=== PATIENT | male | born 1955 | race Caucasian/White ===

== ENCOUNTER → 2017-01-23 | Day surgery (SDC) | payer OTHER ==
[~2017-01-23] MED LIST: BUPIVACAINE LIPOSOME PF 1.3% 20 ML VIAL ONE; MIDAZOLAM HCL 2 MG/2 ML VIAL ONE; ONDANSETRON HCL 4 MG/2 ML VIAL IV PUSH ONE; PROPOFOL 200 MG/20 ML AMP IV ONE; SODIUM CHLORIDE 0.9% 20 ML VIAL ONE; SUBO8MIS PO; ceFAZolin 2 GM PREMIX 50 ML ONE
--- NOTE | 2017-01-23 18:14 | TN ---
cc: BAKARI MALLOY MD DATE OF SURGERY: 01/23/2017 PREOPERATIVE DIAGNOSIS Lipoma to right neck, left chest, right abdomen: Measuring: Right neck 1.5 x 1.5 cm. Left chest 4 x 3 cm. Right abdomen 1 x 1 cm. POSTOPERATIVE DIAGNOSIS Lipoma to right neck, left chest, right abdomen: Measuring: Right neck 1.5 x 1.5 cm. Left chest 4 x 3 cm. Right abdomen 1 x 1 cm. PROCEDURE PERFORMED Excision of lipoma to right neck, left chest, right abdomen. SURGEON Dr. Bakari Malloy SPRINKLER INSTALLER: See OR sheet. ANESTHESIA: GETA. IV FLUIDS See Anesthesia sheet ESTIMATED BLOOD LOSS: 5 cc. DRAINS: None. COMPLICATIONS: None. WOUND CLASSIFICATION: Clean. SPECIMEN: Right neck 1.5 x 1.5 cm lipoma. Left chest 4 x 3 cm lipoma Abdomen 1 x 1 cm lipoma. FINDINGS Good hemostasis. Abdominal lipoma was dark blue in color. INDICATION The patient is a 62-year-old male who presents with soft tissue swelling in the right neck, left chest, right abdomen for several years. They continue to increase in size. Decision was made for operative intervention including excision. Discussed with the patient in detail. DETAILS OF PROCEDURE: The patient was taken to the operating room suite, placed in supine position. He was prepped and draped in the usual sterile fashion after induction of general endotracheal anesthesia. Brief time-out done stating correct patient, procedure and surgical site. All were in agreement. We first selected the right abdomen. Exparel anesthetic was injected. An incision was made transversely over the lipoma and dissection was done with electro Bovie cautery. Hemostat was used to mobilize the lipoma and excise this. The lipoma on the abdomen was darkish blue in color. Next this was irrigated, Exparel injected and closed with 3-0 Vicryl and 4-0 Monocryl. Next the left chest was examined and a transverse incision was made over the lipomatous area. The left chest was approximately a 5 cm incision. This was done with a 15 blade. Further dissection done with electro Bovie cautery. Hemostat used to mobilize the lipoma and electro Bovie cautery used to fully ligate the lipoma. Hemostasis was obtained. The cavity was irrigated. Specimen sent for pathology. The cavity was closed in layers including 3-0 Vicryl and 4-0 Monocryl. Again Exparel injected. Next the neck was identified on the right and we palpated a 1 x 1 cm small lipoma. Incision was made transversely with a 15 blade. Further dissection with electro Bovie cautery and hemostat to remove the lipoma. We again irrigated, hemostasis. 3-0 Vicryl used for deep stitch and 4-0 Monocryl for subcuticular stitch. Sterile dressing including Mastisol, Steri-Strips placed at all incisions. The patient tolerated the procedure well. There was no intraoperative complications. The patient was x-rayed and was stable to PACU. All lap and instrument counts were correct. MD NANCY Sun/YAZMIN /5:18 PM /5:39 PM
== END | disposition home or self-care (01) ==
LOC: ESDC 13:29
PROVIDERS: ATTEND Surgery
DX: D17.1 Benign lipomatous neoplasm of skin and subcutaneous tissue of trunk (principal); D17.0 Benign lipomatous neoplasm of skin and subcutaneous tissue of head, face and neck
CPT/HCPCS: 00300; 00400; 21552; 21555; 22902; 88305; C9290; J0690; J2250; J2405; J3010

== ENCOUNTER 2017-04-18 11:57 | Inpatient (IN) | payer OTHER, MEDICARE ==
[~2017-04-18] VITALS: Ht 175.3 cm; Wt 108.3 kg
[~2017-04-18 11:57] MED LIST changes: +ASPI81CH6 CHEW; -BUPIVACAINE LIPOSOME PF 1.3% 20 ML VIAL ONE; +COMMODE 3-IN-11 MIS; +CPMMACHINE; +ENOX40P SQ; +HYDR-3366 PO; -MIDAZOLAM HCL 2 MG/2 ML VIAL ONE; -ONDANSETRON HCL 4 MG/2 ML VIAL IV PUSH ONE; -PROPOFOL 200 MG/20 ML AMP IV ONE; -SODIUM CHLORIDE 0.9% 20 ML VIAL ONE; +WALKER WHEELS/F1 MIS; -ceFAZolin 2 GM PREMIX 50 ML ONE
[2017-04-18 15:21] VITALS: BP 133/81; PULSE 69; RESP 20; TEMP 98.3; O2SAT 96
[2017-04-18] MEDS ORDERED: GENTAMICIN SULFATE 80 MG/2 ML VIAL ONE ×2 (18:22→19:28)
[2017-04-18] MEDS ORDERED: BACT800T5 PO (18:35)
[2017-04-18] MEDS ORDERED: PERC5TAB12 PO (18:35)
[2017-04-18] MEDS ORDERED: ONDANSETRON HCL 4 MG/2 ML VIAL IVP PRN (18:45)
[2017-04-18] MEDS ORDERED: diphenhydrAMINE HCL 50 MG/ML VIAL IV PUSH PRN (18:45)
[2017-04-18] MEDS ORDERED: oxyCODONE/ACETAMINOPHEN 5 MG/325 MG TAB PO PRN (18:45)
[2017-04-18] MEDS ORDERED: Post-op Orders (for Pharmacy) MISC XX ONE (18:45)
[2017-04-18] MEDS ORDERED: ceFAZolin 2 GM PREMIX 50 ML ONE (18:45)
[2017-04-18] MEDS ORDERED: SODIUM CHLORIDE 0.9% FLUSH 5 ML FLUSH IVF PRN (18:45)
[2017-04-18] MEDS ORDERED: BISACODYL 10 MG SUPP RECTAL PRN (18:45)
--- NOTE | 2017-04-18 18:47 | HHI.DCPOC ---
Discharge Care Plan Diagnosis: (1) Primary localized osteoarthrosis, lower leg (2) Dehiscence of closure of skin Your Health Problems Are: Difficulty with ADL Goals to Promote Your Health * To prevent worsening of your condition and complications * To maintain your health at the optimal level Directions to Meet Your Goals Take your medications as prescribed Follow your dietary instruction Follow activity as directed Keep your appointments as scheduled Take your immunizations and boosters as scheduled If your symptoms worsen call your PCP, if no PCP go to Urgent Care Center or Emergency Room Smoking is Dangerous to Your Health. Avoid second hand smoke Call the 24-hour hour crisis hotline for domestic abuse at [place] Apr 18, 2017 18:47
--- NOTE | 2017-04-18 18:51 | HHI.FF ---
Face to Face Verification Diagnosis: (1) Primary localized osteoarthrosis, lower leg (2) Dehiscence of closure of skin Physical Therapy Gait training, Safety evaluation, Transfer training, bed to chair Knee: Total knee, Protocol: Right, Full weight bearing Right LE Weight Bearing: WB as tolerated Nursing RN: 3 days/week x 2 weeks Dressing Changes: Daily dressing change Additional Instructions IV antibiotics I have seen patient Justo Dias on 04/18/17. My clinical findings support the need for the requested home health care services because: Limited ability to care for self High risk of falls I certify that my clinical findings support that this patient is homebound because: Post-op weakness Unsteady gait/balance [place] Apr 18, 2017 18:50
[2017-04-18] MEDS ORDERED: VANCOMYCIN HCL 1000 MG VIAL ONE (19:24)
[2017-04-18] MEDS ORDERED: DO NOT ADM ANY ANTICOAGULANT DRUGS PRN (20:10)
--- NOTE | 2017-04-18 20:13 | PD.ORT.PN ---
Subjective Post Op Day #: 0 Objective Vitals Vital Signs Date Time Temp Pulse Resp B/P (MAP) Pulse Ox O2 Delivery O2 Flow Rate FiO2 04/18/17 18:00 98.8 74 15 138/79 (98) 95 04/18/17 15:21 98.3 69 20 133/81 (98) 96 I/O 04/17/17 04/17/17 04/17/17 04/18/17 04/18/17 04/18/17 07:00 15:00 23:00 07:00 15:00 23:00 Intake Total 700 ml Output Total 50 ml Balance 650 ml Intake Other 700 ml Output Estimated Blood Loss 50 ml # Voids 1 Assessment & Plan Assessment and Plan s/p I&D R TKA POD#0 history of R TKA 2 weeks ago large hemarthrosis with wound dehiscence and draining deep and superficial cultures taken - follow cultures wbat ROM as tolerated hold chemical anticoagulation due to large post-op hemarthrosis and ecchymosis vanco and ancef - pending cultures f/up dr. ceballos 1-2 weeks rx in chart [place] Apr 18, 2017 20:13
--- NOTE | 2017-04-18 20:45 | RADRPT ---
EXAM DATE/TIME: 04/18/2017 20:19 [facility] COMPARISON: KNEE RIGHT LTD (1 OR 2 VWS), April 04, 2017, 17:38. INDICATIONS : Post op. MEDICAL HISTORY : None. SURGICAL HISTORY : ORIF right knee ENCOUNTER: Initial ACUITY: 1 day PAIN SCORE: Non-responsive. LOCATION: Right knee FINDINGS: Two-view examination of the right knee status post surgery with multiple skin marina present in vert ical midline orientation. Prominent areas of soft tissue gas in the subcutaneous region and within t he joint capsule. Total hip arthroplasty hardware is intact. Alignment of bony structures is anatom ic. CONCLUSION: Post surgical changes from total knee arthroplasty. Livan Baez MD on April 18, 2017 at 20:43 Board Certified Radiologist. This report was verified electronically.
[2017-04-18] MEDS: SODIUM CHLOR 0.9% 1000 ML INJ 1,000 ML IV SCH (21:00)
[2017-04-18] MEDS: SODIUM CHLORIDE 0.9% FLUSH 5 ML FLUSH IVF SCH (21:00)
[2017-04-18] MEDS ORDERED: methylPREDNISolone SOD SUCC 125 MG/2 ML VIAL ONE (21:35)
[2017-04-18] MEDS ORDERED: FAMOTIDINE 20 MG/2 ML VIAL ONE (21:35)
[2017-04-18 22:09] VITALS: O2SAT 95
[2017-04-18] MEDS: MORPHINE SULFATE 4 MG/ML INJ IV PUSH PRN (22:48)
[2017-04-18] MEDS ORDERED: FAMOTIDINE 20 MG/2 ML VIAL IV SCH (23:00)
[2017-04-18] MEDS ORDERED: diphenhydrAMINE HCL 50 MG/ML VIAL IV SCH (23:00)
[2017-04-18] MEDS ORDERED: methylPREDNISolone SOD SUCC 125 MG/2 ML VIAL IV SCH (23:00)
[2017-04-18] MEDS ORDERED: *morphine SULFATE 8 MG/ML PERIprocedure ONLY ONE ×2 (23:02→23:21)
[2017-04-18] MEDS ORDERED: *HYDROmorphone PF 1 MG VIAL PERIprocedural Use ONLY ONE (23:41)
[2017-04-19] VITALS: BP 146/85; PULSE 83; RESP 20; TEMP 98.3; O2SAT 94
[2017-04-19] MEDS: ZOLPIDEM TARTRATE 5 MG TAB PO PRN ×2 (01:19→21:18)
[2017-04-19] MEDS: oxyCODONE/ACETAMINOPHEN 5 MG/325 MG TAB PO PRN ×5 (01:20→18:01)
[2017-04-19 04:00] VITALS: BP 133/81; PULSE 93; RESP 20; TEMP 98.5; O2SAT 93
[2017-04-19] MEDS: SODIUM CHLOR 0.9% 1000 ML INJ 1,000 ML IV SCH ×2 (05:22→13:59)
[2017-04-19] MEDS ORDERED: VANCOMYCIN INJ 1,000 MG in SODIUM CHLOR 0.9% 250 ML INJ 250 ML IV SCH ×2 (07:00→12:00)
[2017-04-19 07:07] LABS: POTASSIUM 4.7 MEQ/L (3.5-5.1)
[2017-04-19 07:10] LABS: HEMATOCRIT 38.8 % (39.0-51.0); MEAN CELL VOLUME 90.9 FL (80.0-100.0); MEAN CORPUSCULAR HEMOGLOBIN 29.9 PG (27.0-34.0); MEAN CORPUSCULAR HGB CONC 32.9 % (32.0-36.0); PLATELET COUNT 262 TH/MM3 (150-450); RED BLOOD COUNT 4.27 MIL/MM3 (4.50-5.90); RED CELL DISTRIBUTION WIDTH 15.3 % (11.6-17.2); REVIEW FLAG FINAL; WHITE BLOOD COUNT 16.3 TH/MM3 (4.0-11.0)
[2017-04-19] MEDS: MORPHINE SULFATE 4 MG/ML INJ IV PUSH PRN ×4 (07:55→21:09)
[2017-04-19] MEDS: SODIUM CHLORIDE 0.9% FLUSH 5 ML FLUSH IVF SCH ×2 (07:58→21:10)
--- NOTE | 2017-04-19 07:59 | PD.CONS ---
HPI Service [facility] Consult Requested By Dr Diggs Reason for Consult medical management Primary Care Physician Barney Carlson MD Diagnoses: Review of Systems Except as stated in HPI: all other systems reviewed are Neg Past Family Social History Allergies: Uncoded Allergies: VANCOMYCIN (Allergy, Severe, hives, tongue swelling, 04/18/17) Physical Exam Vital Signs Vital Signs Date Time Temp Pulse Resp B/P (MAP) Pulse Ox O2 Delivery O2 Flow Rate FiO2 04/19/17 06:24 18 04/19/17 04:00 98.5 93 20 133/81 (98) 93 04/19/17 00:41 18 04/19/17 00:30 18 04/19/17 00:00 98.3 92 18 126/80 (95) 94 Room Air 04/19/17 00:00 98.3 83 20 146/85 (105) 94 04/18/17 23:45 73 18 134/90 (105) 94 Room Air 04/18/17 23:30 71 18 133/79 (97) 93 Room Air 04/18/17 23:15 73 18 133/83 (100) 94 Room Air 04/18/17 23:00 74 20 134/80 (98) 94 Room Air 04/18/17 22:45 65 15 125/79 (94) 94 Room Air 04/18/17 22:30 63 10 134/86 (102) 94 Room Air 04/18/17 22:15 61 12 127/80 (96) 93 Room Air 04/18/17 22:09 95 04/18/17 22:00 63 12 130/88 (102) 94 Room Air 04/18/17 21:45 67 15 119/73 (88) 96 Room Air 04/18/17 21:30 61 13 119/73 (88) 94 Room Air 04/18/17 21:15 63 18 119/73 (88) 95 Room Air 04/18/17 21:00 75 16 126/86 (99) 96 Room Air 04/18/17 20:45 60 16 103/63 (76) 96 Room Air 04/18/17 20:30 64 22 117/80 (92) 96 Room Air 04/18/17 20:15 63 10 117/76 (90) 96 Simple Mask 8 04/18/17 20:09 97.3 63 10 100/66 (77) 98 Simple Mask 8 04/18/17 18:00 98.8 74 15 138/79 (98) 95 04/18/17 15:21 98.3 69 20 133/81 (98) 96 Physical Exam GENERAL: This is a well-nourished, well-developed patient, in no apparent distress. SKIN: No rashes, ecchymoses or lesions. Cool and dry. HEAD: Atraumatic. Normocephalic. No temporal or scalp tenderness. EYES: Pupils equal round and reactive. Extraocular motions intact. No scleral icterus. No injection or drainage. ENT: Nose without bleeding, purulent drainage or septal hematoma. Throat without erythema, tonsillar hypertrophy or exudate. Uvula midline. Airway patent. NECK: Trachea midline. No JVD or lymphadenopathy. Supple, nontender, no meningeal signs. CARDIOVASCULAR: Regular rate and rhythm without murmurs, gallops, or rubs. RESPIRATORY: Clear to auscultation. Breath sounds equal bilaterally. No wheezes , rales, or rhonchi. GASTROINTESTINAL: Abdomen soft, non-tender, nondistended. No hepato-splenomegaly , or palpable masses. No guarding. MUSCULOSKELETAL: Extremities without clubbing, cyanosis, or edema. No joint tenderness, effusion, or edema noted. No calf tenderness. Negative Homans sign bilaterally. NEUROLOGICAL: Awake and alert. Cranial nerves II through XII intact. Motor and sensory grossly within normal limits. Five out of 5 muscle strength in all muscle groups. Normal speech. Laboratory Laboratory Tests Test 04/19/17 05:42 White Blood Count 16.3 Red Blood Count 4.27 Hemoglobin 12.7 Hematocrit 38.8 Mean Corpuscular Volume 90.9 Mean Corpuscular Hemoglobin 29.9 Mean Corpuscular Hemoglobin Concent 32.9 Red Cell Distribution Width 15.3 Platelet Count 262 Mean Platelet Volume 7.7 Blood Urea Nitrogen 21 Creatinine 1.30 Random Glucose 135 Calcium Level 8.4 Sodium Level 140 Potassium Level 4.7 Chloride Level 107 Carbon Dioxide Level 24.0 Anion Gap 9 Estimat Glomerular Filtration Rate 56 Date/Time Source Procedure Growth Status 04/18/17 21:30 Wound Knee Fungal Smear Pending Received 04/18/17 21:30 Wound Knee Fungal Culture Pending Received Result Diagram: 04/19/17 0542 04/19/17 0542 Imaging Last Impressions Knee X-Ray 04/18/17 2707 Signed Impressions: Service Date/Time: Tuesday, April 18, 2017 20:19 - CONCLUSION: Post surgical changes from total knee arthroplasty. Livan Baez MD Assessment and Plan Assessment and Plan History of R TKA 2 weeks ago S/p I&D R TKA by Dr Diggs 04/18/17 With severe sepsis criteria leukocytosis, tachycardia , LA 4.2, source poss joint. However leukocytosis might be reactive after surgery and tachycardia 2/2 pain.Monitor cbc, cultures. Ordered blood cultures. UA, CXR, LA. Vancomycin allergy on ancef at this time. Consult ID. Give 1L NS bolus continue IVF NS at 100 cc. Monitor LA per sepsis protocol. Monitro VS closely Large hemarthrosis with wound dehiscence and draining Deep and superficial cultures taken in OR - follow cultures Hold chemical anticoagulation due to large post-op hemarthrosis and ecchymosis On IV antibiotics vanco and ancef - follow cultures DVT ppx hold chemical ppx Might consider transfering to ICU if need as patient with severe sepsis, LA > 4 Discussed Condition With patient, nurse Gia Powell MD Apr 19, 2017 07:59
[2017-04-19 08:01] VITALS: BP 125/78; PULSE 102; RESP 20; TEMP 97.7; O2SAT 93
--- NOTE | 2017-04-19 08:24 | PD.ORT.PN ---
Subjective Subjective Remarks no issues. no CP/SOB Objective Vitals Vital Signs Date Time Temp Pulse Resp B/P (MAP) Pulse Ox O2 Delivery O2 Flow Rate FiO2 04/19/17 08:01 97.7 102 20 125/78 (94) 93 04/19/17 06:24 18 04/19/17 04:00 98.5 93 20 133/81 (98) 93 04/19/17 00:41 18 04/19/17 00:30 18 04/19/17 00:00 98.3 92 18 126/80 (95) 94 Room Air 04/19/17 00:00 98.3 83 20 146/85 (105) 94 04/18/17 23:45 73 18 134/90 (105) 94 Room Air 04/18/17 23:30 71 18 133/79 (97) 93 Room Air 04/18/17 23:15 73 18 133/83 (100) 94 Room Air 04/18/17 23:00 74 20 134/80 (98) 94 Room Air 04/18/17 22:45 65 15 125/79 (94) 94 Room Air 04/18/17 22:30 63 10 134/86 (102) 94 Room Air 04/18/17 22:15 61 12 127/80 (96) 93 Room Air 04/18/17 22:09 95 04/18/17 22:00 63 12 130/88 (102) 94 Room Air 04/18/17 21:45 67 15 119/73 (88) 96 Room Air 04/18/17 21:30 61 13 119/73 (88) 94 Room Air 04/18/17 21:15 63 18 119/73 (88) 95 Room Air 04/18/17 21:00 75 16 126/86 (99) 96 Room Air 04/18/17 20:45 60 16 103/63 (76) 96 Room Air 04/18/17 20:30 64 22 117/80 (92) 96 Room Air 04/18/17 20:15 63 10 117/76 (90) 96 Simple Mask 8 04/18/17 20:09 97.3 63 10 100/66 (77) 98 Simple Mask 8 04/18/17 18:00 98.8 74 15 138/79 (98) 95 04/18/17 15:21 98.3 69 20 133/81 (98) 96 I/O 04/18/17 04/18/17 04/18/17 04/19/17 04/19/17 04/19/17 07:00 15:00 23:00 07:00 15:00 23:00 Intake Total 700 ml 1340 ml 350 ml Output Total 50 ml 400 ml Balance 650 ml 940 ml 350 ml Intake Oral 240 ml IV Total 1100 ml 350 ml Other 700 ml Output Urine Total 400 ml Estimated Blood Loss 50 ml # Voids 1 # Bowel Movements 0 Result Diagram: 04/19/17 0542 04/19/17 0542 Imaging Last 24 hours Impressions Knee X-Ray 04/18/17 1839 Signed Impressions: Service Date/Time: Tuesday, April 18, 2017 20:19 - CONCLUSION: Post surgical changes from total knee arthroplasty. Livan Baez MD Objective Remarks Alert awake and oriented -3. No acute distress. Pulmonary: Normal respiratory effort. Right lower extremity: Neurovascularly intact, +EHL/FHL, dressing clean, dry and intact. + PT/DP pulses. Supple compartments. Negative Homans sign. Assessment & Plan Assessment and Plan s/p I&D R TKA POD#1 history of R TKA 2 weeks ago large hemarthrosis with wound dehiscence and draining deep and superficial cultures taken - follow cultures wbat ROM as tolerated hold chemical anticoagulation due to large post-op hemarthrosis and ecchymosis vanco and ancef - pending cultures ID consultation pending f/up dr. ceballos 1-2 weeks rx in chart Chilango Padilla Jr., MD Apr 19, 2017 08:24
[2017-04-19] MEDS ORDERED: BUPRENORPHINE NALOXONE PO SCH (09:00)
--- NOTE | 2017-04-19 09:02 | MP ---
cc: JANINA TABOR DATE OF SURGERY: 04/18/2017 PREOPERATIVE DIAGNOSIS Right knee wound dehiscence with drainage status post total knee arthroplasty. POSTOPERATIVE DIAGNOSIS Right knee wound dehiscence with drainage status post total knee arthroplasty. PROCEDURE Irrigation and debridement of right knee with closure. SURGEON Dr. Janina Tabor. PORTFOLIO STRATEGIST MARIBELL Nix ANESTHESIA Spinal. ESTIMATED BLOOD LOSS 100 ccs. TOURNIQUET TIME 21 minutes at 250 mmHg. COMPLICATIONS None. JUSTIFICATION This patient is a 62-year-old male who has undergone previous right total knee arthroplasty 04/04/2017. He presented to the [facility] today for evaluation and he had a small area of dehiscence along the distal portion of his wound but with significant drainage noted. The patient was counseled as to the risks, benefits and alternatives to the above-named proposed surgical procedure, he did wish to proceed with surgery. PROCEDURE IN DETAIL A written consent was obtained. The patient was identified by name, taken to the operating room and placed supine on the operating table. Spinal anesthesia was administered, preoperative antibiotics were purposely held in order to obtain the cultures. The well-padded tourniquet was placed on the right thigh. The right lower extremity was prepped and draped using isopropyl alcohol, Hibiclens solution and Chloraprep solution. The extremity was elevated for 60 seconds and the tourniquet inflated to 250 mmHg. A longitudinal incision was made over the anterior aspect of the right knee. A large amount of serosanguineous fluid and hematoma was noted to come from the prepatellar space. Cultures of the prepatellar space were then obtained. The prepatellar space was then thoroughly irrigated with 3 liters sterile saline pulse lavage antibiotic impregnated solution. At this point a small arthrotomy incision was made over the medial aspect of the right knee. The knee joint itself was then thoroughly irrigated with 6 liters of sterile saline pulse lavage antibiotic impregnated solution. At this point the tourniquet was deflated and Bovie cautery was used for hemostasis. The arthrotomy incision was closed with #1 PDS suture, subcutaneous layer with 2-0 Vicryl sutures, skin incisions closed with amrina. Sterile dressing was applied. The patient tolerated the procedure well with no intraoperative complications noted. MD LEON Flood/ELA /7:53 PM /8:51 AM
--- NOTE | 2017-04-19 10:07 | RADRPT ---
EXAM DATE/TIME: 04/19/2017 07:34 [facility] COMPARISON: No previous studies available for comparison. INDICATIONS : Fever. MEDICAL HISTORY : None. SURGICAL HISTORY : Total right knee arthroplasty. ENCOUNTER: Subsequent ACUITY: 2 days PAIN SCORE: 0/10 LOCATION: Bilateral chest FINDINGS: Mild elevation of the image. There are patchy infiltrates in the left lower lung with air bronchogra ms. Left hemidiaphragm remains delineated. The right lung is clear. The heart is upper limits norm al size for AP portable technique. CONCLUSION: Patchy infiltrates in the left lower lung. Livan Baez MD on April 19, 2017 at 10:05 Board Certified Radiologist. This report was verified electronically.
--- NOTE | 2017-04-19 10:37 | EKG ---
Date Performed: 04/18/2017 Time Performed: 17:57:23 PTAGE: 62 years EKG: Sinus rhythm NORMAL ECG PREVIOUS TRACING : 12/03/2010 00.37 DOCTOR: Darius Whitten Interpretating Date/Time 04/19/2017 10:36:14
[2017-04-19 10:42] LABS: BLOOD, URINE SMALL (NEG); GLUCOSE,URINE 150 mg/dL (NEG); KETONE, URINE TRACE mg/dL (NEG); MUCUS URINE FEW /lpf (OCC); NITRITE,URINE NEG (NEG); PH, URINE 5.5 (5.0-8.5); URINE COLOR YELLOW (YELLW/STRAW)
[2017-04-19 10:43] LABS: COMMENT (UR) CULT NOT INDICATED; CULTURE IF INDICATED CULT NOT INDICATED
[2017-04-19] MEDS ORDERED: MAGNESIUM HYDROXIDE SUSP 30 ML CUP PO PRN (12:00)
[2017-04-19] MEDS ORDERED: LACTULOSE SYRUP 20 GM/30 ML CUP PO PRN (12:00)
[2017-04-19] MEDS ORDERED: BISACODYL 10 MG SUPP RECTAL PRN (12:00)
[2017-04-19] MEDS ORDERED: SENNOSIDES 8.6 MG TAB PO PRN (12:00)
[2017-04-19] MEDS ORDERED: Vancomycin Consult Pharmacy 1 EA OTHER SCH (12:00)
[2017-04-19] MEDS ORDERED: NALOXONE HCL 0.4 MG/ML AMP IV PUSH PRN (12:00)
[2017-04-19 12:18] VITALS: BP 128/66; PULSE 98; RESP 20; TEMP 98.3; O2SAT 94
[2017-04-19] MEDS ORDERED: SODIUM CHLOR 0.9% 1000 ML INJ 1,000 ML IV ONE (13:00)
[2017-04-19 13:06] LABS: LACTIC ACID GHOST NOT REPORTABLE
--- NOTE | 2017-04-19 14:46 | PD.CONS ---
HPI Service [facility] Hospitalists Consult Requested By Dr Dontae mejia Reason for Consult medical management Primary Care Physician Barney Carlson MD Diagnoses: (1) Severe sepsis (2) History of total knee arthroplasty (3) Primary localized osteoarthrosis, lower leg (4) Dehiscence of closure of skin History of Present Illness Patient is a pleasant 62 yo male with PMH of recent right knee surgery and now with possible joint infection. Patient had hematoma at the surgical site. He is at this time with tachycardia and has leukocytosis, meeting sepsis criteria. Patient is S/p I&D R TKA by Dr Diggs 04/18/17. The hospitalist is consulted for further evaluation and medical management. Patient doesn't appear in acute distress at this time. Patient says he has no fevers or chills. He has pain at the right knee at the surgical site. Denies chest pain or sob. No n/v/d/c. Patient has some difficulty to walk due to pain. No n/v/d/c. Able to eat. Denies cough or palpitations. he has a h/o [place] with stent placed 2 years ago says he is taking only aspirin, as his BP is low and can't tolerate medications. patient refusing any other medication, says his cardiology Dr Is Dr Madrid. Review of Systems Except as stated in HPI: all other systems reviewed are Neg Past Family Social History Allergies: Uncoded Allergies: VANCOMYCIN (Allergy, Severe, hives, tongue swelling, 04/18/17) Past Medical History H/o melanoma Osteoarthritis [place] with stent placed 2 years ago says herson is taking only aspirin, as his BP is low and can't tolerate medications. patient refusing any other medication, says his cardiology Dr Is Dr Madrid Past Surgical History Right knee surgery Left leg surgery Left hand surgery Right shoulder surgery Cardiac cath with 1 stent placed 2 years ago Reported Medications Reported Meds & Active Scripts Active Bactrim DS (Sulfamethoxazole-Trimethoprim) 800-160 Mg Tab 1 Tab PO BID Percocet (Oxycodone-Acetaminophen) 5-325 mg Tab 1-2 Tab PO Q4H PRN Commode 3-in-1 (Device) 1 Mis Mis Ea .ROUTE DIRECTED CPM-Continuous Passive Motion Machine 1 Ea Device Ea .ROUTE DIRECTED Walker with Front Wheels (Device) 1 Mis Mis Ea .ROUTE DIRECTED Aspirin Low Dose (Aspirin) 81 Mg Chew 81 Mg CHEW BID 30 Days [place] (Hydrocodone-Acetaminophen) 10-325 Mg Tab 1 Tab PO Q4H PRN Reported Suboxone Sublingual Film (Buprenorphine-Naloxone Sublingual Film) 8-2 Mg Film 8 Mg PO DAILY Unique ID number required: Family History Both parents with EtOH use/abuse, MIs with bipass surgeries, Cancer unspecified Social History Quit smoking 2.5 month ago, used to smoke 1/2 PPD for ~35 years Occasional EtOH use used to drink more at young age Denies Illicit drug use Physical Exam Vital Signs Vital Signs Date Time Temp Pulse Resp B/P (MAP) Pulse Ox O2 Delivery O2 Flow Rate FiO2 04/19/17 12:18 98.3 98 20 128/66 (86) 94 04/19/17 08:01 97.7 102 20 125/78 (94) 93 04/19/17 06:24 18 04/19/17 04:00 98.5 93 20 133/81 (98) 93 04/19/17 00:41 18 04/19/17 00:30 18 04/19/17 00:00 98.3 92 18 126/80 (95) 94 Room Air 04/19/17 00:00 98.3 83 20 146/85 (105) 94 04/18/17 23:45 73 18 134/90 (105) 94 Room Air 04/18/17 23:30 71 18 133/79 (97) 93 Room Air 04/18/17 23:15 73 18 133/83 (100) 94 Room Air 04/18/17 23:00 74 20 134/80 (98) 94 Room Air 04/18/17 22:45 65 15 125/79 (94) 94 Room Air 04/18/17 22:30 63 10 134/86 (102) 94 Room Air 04/18/17 22:15 61 12 127/80 (96) 93 Room Air 04/18/17 22:09 95 04/18/17 22:00 63 12 130/88 (102) 94 Room Air 04/18/17 21:45 67 15 119/73 (88) 96 Room Air 04/18/17 21:30 61 13 119/73 (88) 94 Room Air 04/18/17 21:15 63 18 119/73 (88) 95 Room Air 04/18/17 21:00 75 16 126/86 (99) 96 Room Air 04/18/17 20:45 60 16 103/63 (76) 96 Room Air 04/18/17 20:30 64 22 117/80 (92) 96 Room Air 04/18/17 20:15 63 10 117/76 (90) 96 Simple Mask 8 04/18/17 20:09 97.3 63 10 100/66 (77) 98 Simple Mask 8 04/18/17 18:00 98.8 74 15 138/79 (98) 95 04/18/17 15:21 98.3 69 20 133/81 (98) 96 Physical Exam GENERAL: This is a well-nourished, well-developed patient, in no apparent distress. SKIN: No rashes, ecchymoses or lesions. Cool and dry. HEAD: Atraumatic. Normocephalic. No temporal or scalp tenderness. EYES: Pupils equal round and reactive. Extraocular motions intact. No scleral icterus. No injection or drainage. ENT: Nose without bleeding, purulent drainage or septal hematoma. Throat without erythema, tonsillar hypertrophy or exudate. Uvula midline. Airway patent. NECK: Trachea midline. No JVD or lymphadenopathy. Supple, nontender, no meningeal signs. CARDIOVASCULAR: Regular rate and rhythm without murmurs, gallops, or rubs. RESPIRATORY: Clear to auscultation. Breath sounds equal bilaterally. No wheezes , rales, or rhonchi. GASTROINTESTINAL: Abdomen soft, non-tender, nondistended. No hepato-splenomegaly , or palpable masses. No guarding. MUSCULOSKELETAL: Right knee with marina in , swelling, and not much erythema. painful to palpation. at the surgical site. Right LE edema. NEUROLOGICAL: Awake and alert. Cranial nerves II through XII intact. Motor and sensory grossly within normal limits. Five out of 5 muscle strength in all muscle groups. Normal speech. Laboratory Laboratory Tests Test 04/19/17 05:42 04/19/17 10:00 04/19/17 10:35 White Blood Count 16.3 Red Blood Count 4.27 Hemoglobin 12.7 Hematocrit 38.8 Mean Corpuscular Volume 90.9 Mean Corpuscular Hemoglobin 29.9 Mean Corpuscular Hemoglobin Concent 32.9 Red Cell Distribution Width 15.3 Platelet Count 262 Mean Platelet Volume 7.7 Blood Urea Nitrogen 21 Creatinine 1.30 Random Glucose 135 Calcium Level 8.4 Sodium Level 140 Potassium Level 4.7 Chloride Level 107 Carbon Dioxide Level 24.0 Anion Gap 9 Estimat Glomerular Filtration Rate 56 Urine Color YELLOW Urine Turbidity CLEAR Urine pH 5.5 Urine Specific [place] 1.024 Urine Protein NEG Urine Glucose (UA) 150 Urine Ketones TRACE Urine Occult Blood SMALL Urine Nitrite NEG Urine Bilirubin NEG Urine Urobilinogen LESS THAN 2.0 Urine Leukocyte Esterase NEG Urine RBC 1 Urine WBC LESS THAN 1 Urine Mucus FEW Microscopic Urinalysis Comment CULT NOT INDICATED Lactic Acid Level 4.2 Date/Time Source Procedure Growth Status 04/19/17 10:35 Blood Peripheral Aerobic Blood Culture Pending Received 04/19/17 10:35 Blood Peripheral Anaerobic Blood Culture Pending Received 04/18/17 21:30 Wound Knee Fungal Smear Pending Received 04/18/17 21:30 Wound Knee Fungal Culture Pending Received Result Diagram: 04/19/17 0542 04/19/17 0542 Imaging Last Impressions Chest X-Ray 04/19/17 0000 Signed Impressions: Service Date/Time: March 07:34 - CONCLUSION: Patchy infiltrates in the left lower lung. Livan Baez MD Knee X-Ray 04/18/17 1839 Signed Impressions: Service Date/Time: Tuesday, April 18, 2017 20:19 - CONCLUSION: Post surgical changes from total knee arthroplasty. Livan Baez MD Assessment and Plan Assessment and Plan History of R TKA 2 weeks ago S/p I&D R TKA by Dr Diggs 04/18/17 With severe sepsis criteria leukocytosis, tachycardia , LA 4.2, source poss joint. However leukocytosis might be reactive after surgery and tachycardia 2/2 pain.Monitor cbc, cultures. Ordered blood cultures. UA, CXR, LA. Vancomycin allergy on ancef at this time. Consult ID appreciate recommendations dr Sahu will evaluate patient. Give 1L NS bolus continue IVF NS at 100 cc. Monitor LA per sepsis protocol. Monitor VS closely. Large hemarthrosis with wound dehiscence and draining Deep and superficial cultures taken in OR - follow cultures Hold chemical anticoagulation due to large post-op hemarthrosis and ecchymosis On IV antibiotics vanco and ancef - follow cultures H/o [place] with stent placed 2 years ago per patient, says he is taking only aspirin , as his BP is low and can't tolerate medications. patient refusing any other medication, says his cardiology Dr Is Dr Madrid DVT ppx hold chemical ppx Might consider transferring to ICU if need as patient with severe sepsis, LA > 4 Discussed Condition With patient, nurse, Dr Sandy ID specialist Gia Powell MD Apr 19, 2017 14:46
[2017-04-19 16:23] VITALS: BP 125/66; PULSE 78; RESP 20; TEMP 99; O2SAT 93
--- NOTE | 2017-04-19 17:17 | PD.ID.CON ---
History of Present Illness Service ID Consult Requested By Reason for Consult Evaluation and Mment of post surgical wound infection rule out deeper hardware infection. Primary Care Physician Barney Carlson MD Diagnoses: History of Present Illness is a 62 yo male with h/o I&D R TKA by Dr Diggs 04/18/17 which was elective. He reports having waited 5 years due to [facility] not approving [facility] surgery. He then obtained insurance and saw .On post op visit when seen by ortho decided to bring him into the hospital for I&D of wound dehiscence site. Patient says he has no fevers or chills or night sweats. He has pain at the right knee at the surgical site. Denies chest pain or sob. No n/ v/d/c. Patient has some difficulty to walk due to pain. No n/v/d/c. Denies cough or palpitations. Patient reports no antibiotics prior to admission for any reason. Intra op cultures which appear to be pre patellar are positive for Gram negative rods. ID consulted for evaluation and Mment of right knee surgical wound dehiscence. Intraop note reviewed wound dehiscence and drainage color noted. Arthrotomy performed and knee joint irrigated. Review of Systems Constitutional: DENIES: Diaphoretic episodes, Fatigue, Fever, Weight gain, Weight loss, Chills, Dizziness, Change in appetite, Night Sweats Endocrine: DENIES: Heat/cold intolerance, Polydipsia, Polyuria, Polyphagia Eyes: DENIES: Blurred vision, Diplopia, Eye inflammation, Eye pain, Vision loss , Photosensitivity, Double Vision Ears, nose, mouth, throat: DENIES: Tinnitus, Hearing loss, Vertigo, Nasal discharge, Oral lesions, Throat pain, Hoarseness, Ear Pain, Running Nose, Epistaxis, Sinus Pain, Toothache, Odynophagia Respiratory: DENIES: Apneas, Cough, Snoring, Wheezing, Hemoptysis, Sputum production, Shortness of breath Cardiovascular: DENIES: Chest pain, Palpitations, Syncope, Dyspnea on Exertion , PND, Lower Extremity Edema, Orthopnea, Claudication Gastrointestinal: DENIES: Abdominal pain, Black stools, Bloody stools, Constipation, Diarrhea, Nausea, Vomiting, Difficulty Swallowing, Anorexia Genitourinary: DENIES: Sexual dysfunction, Urinary frequency, Urinary incontinence, Urgency, Hematuria, Dysuria, Nocturia, Penile Discharge, Testicular Pain, Testicular Swelling Musculoskeletal: COMPLAINS OF: Joint pain, Joint Swelling Integumentary: DENIES: Abnormal pigmentation, Nail changes, Pruritus, Rash Hematologic/lymphatic: DENIES: Bruising, Lymphadenopathy Immunologic/allergic: DENIES: Eczema, Urticaria Neurologic: DENIES: Abnormal gait, Headache, Localized weakness, Paresthesias, Seizures, Speech Problems, Tremor, Poor Balance Psychiatric: DENIES: Anxiety, Confusion, Mood changes, Depression, Hallucinations, Agitation, Suicidal Ideation, Homicidal Ideation, Delusions Except as stated in HPI: all other systems reviewed are Neg Past Family Social History Allergies: Uncoded Allergies: VANCOMYCIN (Allergy, Severe, hives, tongue swelling, 04/18/17) Past Medical History H/o melanoma Osteoarthritis [place] with stent placed 2 years ago says he is taking only aspirin, as his BP is low and can't tolerate medications. 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 He reports being on oral antibiotics for extended period at that time ? tenosynovitis. Past Surgical History Right knee surgery Left leg surgery Left hand surgery Right shoulder surgery Cardiac cath with 1 stent placed 2 years ago Reported Medications Reported Meds & Active Scripts Active Bactrim DS (Sulfamethoxazole-Trimethoprim) 800-160 Mg Tab 1 Tab PO BID Percocet (Oxycodone-Acetaminophen) 5-325 mg Tab 1-2 Tab PO Q4H PRN Commode 3-in-1 (Device) 1 Mis Mis Ea .ROUTE DIRECTED CPM-Continuous Passive Motion Machine 1 Ea Device Ea .ROUTE DIRECTED Walker with Front Wheels (Device) 1 Mis Mis Ea .ROUTE DIRECTED Aspirin Low Dose (Aspirin) 81 Mg Chew 81 Mg CHEW BID 30 Days [place] (Hydrocodone-Acetaminophen) 10-325 Mg Tab 1 Tab PO Q4H PRN Reported Suboxone Sublingual Film (Buprenorphine-Naloxone Sublingual Film) 8-2 Mg Film 8 Mg PO DAILY Unique ID number required: Active Ordered Medications Current Medications Medications (Trade) Dose Ordered Sig/Jessee Route Start Time Stop Time Status Last Admin Patient Own Medication PT OWN MED: Buprenorphine-Naloxon... DAILY PO 04/19/17 09:00 Future Hold Sodium Chloride 1,000 ml @ 100 mls/hr Q10H IV 04/18/17 18:39 04/19/17 05:22 (NS Flush) 2 ml UNSCH PRN IVF 04/18/17 18:45 (NS Flush) 2 ml BID IVF 04/18/17 21:00 04/18/17 21:00 (Morphine Inj) 3 mg Q3H PRN IV PUSH 04/18/17 18:45 04/19/17 17:27 (Percocet 5-325 Mg) 1 tab Q4H PRN PO 04/18/17 18:45 (Percocet 5-325 Mg) 2 tab Q4H PRN PO 04/18/17 18:45 04/19/17 18:01 (Theragran M Tab) 1 tab BID PO 04/19/17 21:00 06/18/17 20:59 (Zofran Inj) 4 mg Q6H PRN IVP 04/18/17 18:45 (Ambien) 5 mg HS PRN PO 04/18/17 18:45 04/19/17 01:19 (Benadryl Inj) 25 mg Q6H PRN IV PUSH 04/18/17 18:45 04/18/17 21:13 Miscellaneous Information ALL NURSING DEPARTME... UNSCH PRN .XX 04/18/17 20:10 04/19/17 20:09 (Narcan Inj) 0.4 mg UNSCH PRN IV PUSH 04/19/17 12:00 (Eliana-Colace) 1 tab BID PO 04/19/17 21:00 (Milk Of Magnesia Liq) 30 ml Q12H PRN PO 04/19/17 12:00 (Senokot) 17.2 mg Q12H PRN PO 04/19/17 12:00 (Dulcolax Supp) 10 mg DAILY PRN RECTAL 04/19/17 12:00 (Lactulose Liq) 30 ml DAILY PRN PO 04/19/17 12:00 Cefepime HCl 2000 mg/Sodium Chloride 100 ml @ 200 mls/hr Q8H IV 04/19/17 18:45 UNV Family History Both parents with EtOH use/abuse, MIs with bypass surgeries, Cancer unspecified Social History Quit smoking 2.5 month ago, used to smoke 1/2 PPD for ~35 years Occasional EtOH use used to drink more at young age Denies Illicit drug use Physical Exam Vital Signs Vital Signs Date Time Temp Pulse Resp B/P (MAP) Pulse Ox O2 Delivery O2 Flow Rate FiO2 04/19/17 16:23 99.0 78 20 125/66 (85) 93 04/19/17 12:18 98.3 98 20 128/66 (86) 94 04/19/17 08:01 97.7 102 20 125/78 (94) 93 04/19/17 06:24 18 04/19/17 04:00 98.5 93 20 133/81 (98) 93 04/19/17 00:41 18 04/19/17 00:30 18 04/19/17 00:00 98.3 92 18 126/80 (95) 94 Room Air 04/19/17 00:00 98.3 83 20 146/85 (105) 94 04/18/17 23:45 73 18 134/90 (105) 94 Room Air 04/18/17 23:30 71 18 133/79 (97) 93 Room Air 04/18/17 23:15 73 18 133/83 (100) 94 Room Air 04/18/17 23:00 74 20 134/80 (98) 94 Room Air 04/18/17 22:45 65 15 125/79 (94) 94 Room Air 04/18/17 22:30 63 10 134/86 (102) 94 Room Air 04/18/17 22:15 61 12 127/80 (96) 93 Room Air 04/18/17 22:09 95 04/18/17 22:00 63 12 130/88 (102) 94 Room Air 04/18/17 21:45 67 15 119/73 (88) 96 Room Air 04/18/17 21:30 61 13 119/73 (88) 94 Room Air 04/18/17 21:15 63 18 119/73 (88) 95 Room Air 04/18/17 21:00 75 16 126/86 (99) 96 Room Air 04/18/17 20:45 60 16 103/63 (76) 96 Room Air 04/18/17 20:30 64 22 117/80 (92) 96 Room Air 04/18/17 20:15 63 10 117/76 (90) 96 Simple Mask 8 04/18/17 20:09 97.3 63 10 100/66 (77) 98 Simple Mask 8 04/18/17 18:00 98.8 74 15 138/79 (07) 95 Physical Exam GENERAL: This is a well-nourished, well-developed patient, in no apparent distress. SKIN: No rashes, ecchymoses or lesions. Cool and dry. HEAD: Atraumatic. Normocephalic. No temporal or scalp tenderness. EYES: Pupils equal round and reactive. Extraocular motions intact. No scleral icterus. No injection or drainage. ENT: Nose without bleeding, purulent drainage or septal hematoma. Throat without erythema, tonsillar hypertrophy or exudate. Uvula midline. Airway patent. NECK: Trachea midline. No JVD or lymphadenopathy. Supple, nontender, no meningeal signs. CARDIOVASCULAR: Regular rate and rhythm without murmurs, gallops, or rubs. RESPIRATORY: Clear to auscultation. Breath sounds equal bilaterally. No wheezes , rales, or rhonchi. GASTROINTESTINAL: Abdomen soft, non-tender, nondistended. No hepato-splenomegaly , or palpable masses. No guarding. MUSCULOSKELETAL: Right knee with sutures noted and very minimal erythema along suture line. There is no post op dressing over it. NEUROLOGICAL: Awake and alert. Cranial nerves II through XII intact. Motor and sensory grossly within normal limits. Five out of 5 muscle strength in all muscle groups. Normal speech. Psych cooperative IV line sites with no e.o infection. Laboratory Laboratory Tests Test 04/19/17 05:42 04/19/17 10:00 04/19/17 10:35 04/19/17 16:14 White Blood Count 16.3 Red Blood Count 4.27 Hemoglobin 12.7 Hematocrit 38.8 Mean Corpuscular Volume 90.9 Mean Corpuscular Hemoglobin 29.9 Mean Corpuscular Hemoglobin Concent 32.9 Red Cell Distribution Width 15.3 Platelet Count 262 Mean Platelet Volume 7.7 Blood Urea Nitrogen 21 Creatinine 1.30 Random Glucose 135 Calcium Level 8.4 Sodium Level 140 Potassium Level 4.7 Chloride Level 107 Carbon Dioxide Level 24.0 Anion Gap 9 Estimat Glomerular Filtration Rate 56 Urine Color YELLOW Urine Turbidity CLEAR Urine pH 5.5 Urine Specific [place] 1.024 Urine Protein NEG Urine Glucose (UA) 150 Urine Ketones TRACE Urine Occult Blood SMALL Urine Nitrite NEG Urine Bilirubin NEG Urine Urobilinogen LESS THAN 2.0 Urine Leukocyte Esterase NEG Urine RBC 1 Urine WBC LESS THAN 1 Urine Mucus FEW Microscopic Urinalysis Comment CULT NOT INDICATED Lactic Acid Level 4.2 2.8 Date/Time Source Procedure Growth Status 04/19/17 10:35 Blood Peripheral Aerobic Blood Culture Pending Received 04/19/17 10:35 Blood Peripheral Anaerobic Blood Culture Pending Received 04/18/17 21:30 Wound Knee Fungal Smear Pending Received 04/18/17 21:30 Wound Knee Fungal Culture Pending Received Result Diagram: 04/19/17 0542 04/19/17 0542 Imaging Last Impressions Chest X-Ray 04/19/17 0000 Signed Impressions: Service Date/Time: March 07:34 - CONCLUSION: Patchy infiltrates in the left lower lung. Livan Baez MD Knee X-Ray 04/18/17 1839 Signed Impressions: Service Date/Time: Tuesday, April 18, 2017 20:19 - CONCLUSION: Post surgical changes from total knee arthroplasty. Livan Baez MD Assessment and Plan Assessment and Plan Sepsis present on admission source right knee infection Right knee surgical wound dehiscence with infection Will treat as hardware infection in view of new joint and surgical area infection. GNR from pre pattelar area cultures Right TKR with hardware in place. Recs DC Cefazolin IV Start Cefepime IV (GNR in intra op cultures) Follow cultures Follow clinically Cultures, susceptibility data needed to formulate a DC plan. Also blood cultures need to be followed as patient met sepsis criteria. Bacteremia has to be ruled out to place a PICC Line. No PICC till cleared by ID. I would recommend treating this as possible hardware infection with IV antibiotics for 6 weeks to prevent any future issues. Jessica Garcia MD Apr 19, 2017 17:17
[2017-04-19] MEDS ORDERED: ceFAZolin 1,000 MG/NS 100 ML IV SCH ×2 (18:00)
[2017-04-19] MEDS ORDERED: CEFEPIME INJ 2,000 MG in SODIUM CHLORIDE 0.9% INJ 100 ML IV SCH (19:00)
[2017-04-19 20:00] VITALS: BP 132/76; PULSE 81; RESP 18; TEMP 98.5; O2SAT 93
[2017-04-19] MEDS ORDERED: DOCUSATE SODIUM 100 MG CAP PO SCH (21:00)
[2017-04-19] MEDS: CEFEPIME INJ 2,000 MG in SODIUM CHLORIDE 0.9% INJ 100 ML IV SCH (21:09)
[2017-04-19] MEDS: DOCUSATE SODIUM 50 MG/SENNA 8.6 MG TAB PO SCH (21:09)
[2017-04-19] MEDS: MULTIVITAMINS/MINERALS THERAPEUTIC TAB PO SCH (21:09)
[2017-04-20] VITALS (7 sets, daily range): BP systolic 127–146; BP diastolic 71–92; PULSE 72–82; RESP 18; TEMP 97.7–99.5; O2SAT 91–96
[2017-04-20] MEDS: SODIUM CHLOR 0.9% 1000 ML INJ 1,000 ML IV SCH ×4 (00:39→20:27)
[2017-04-20] MEDS: oxyCODONE/ACETAMINOPHEN 5 MG/325 MG TAB PO PRN ×4 (01:56→20:28)
[2017-04-20] MEDS: CEFEPIME INJ 2,000 MG in SODIUM CHLORIDE 0.9% INJ 100 ML IV SCH ×2 (03:00→13:02)
[2017-04-20 08:29] LABS: AUTOMATED NEUTROPHIL # 12.8 TH/MM3 (1.8-7.7); BASOPHIL # 0.1 TH/MM3 (0-0.2); BASOPHIL % 0.3 % (0.0-2.0); EOSINOPHIL # 0.1 TH/MM3 (0-0.4); EOSINOPHIL % 0.6 % (0.0-4.0); HEMATOCRIT 35.7 % (39.0-51.0); HEMO FLAGS DIFF FINAL; LYMPH % 15.7 % (9.0-44.0); LYMPHOCYTE # 2.7 TH/MM3 (1.0-4.8); MEAN CELL VOLUME 90.3 FL (80.0-100.0); MEAN CORPUSCULAR HEMOGLOBIN 29.7 PG (27.0-34.0); MEAN CORPUSCULAR HGB CONC 32.9 % (32.0-36.0); MONO % 7.7 % (0.0-8.0); NEUT % 75.7 % (16.0-70.0); PLATELET COUNT 248 TH/MM3 (150-450); RED BLOOD COUNT 3.95 MIL/MM3 (4.50-5.90); RED CELL DISTRIBUTION WIDTH 15.8 % (11.6-17.2); WHITE BLOOD COUNT 16.9 TH/MM3 (4.0-11.0)
[2017-04-20] MEDS: DOCUSATE SODIUM 50 MG/SENNA 8.6 MG TAB PO SCH ×2 (08:38→20:25)
[2017-04-20] MEDS: MULTIVITAMINS/MINERALS THERAPEUTIC TAB PO SCH ×2 (08:38→20:25)
[2017-04-20] MEDS: SODIUM CHLORIDE 0.9% FLUSH 5 ML FLUSH IVF SCH ×2 (08:39→20:26)
[2017-04-20 08:43] LABS: ANION GAP 7 MEQ/L (5-15); AST (GOT) 11 U/L (15-37); BICARBONATE 25.2 MEQ/L (21.0-32.0); BLOOD UREA NITROGEN 24 MG/DL (7-18); CHLORIDE 110 MEQ/L (98-107); GLOMERULAR FILTRATION RATE 67 ML/MIN (>89); POTASSIUM 4.1 MEQ/L (3.5-5.1); SODIUM (NA) 142 MEQ/L (136-145)
[2017-04-20 08:45] LABS: ALT (GPT) 21 U/L (12-78)
[2017-04-20 08:46] LABS: ALKALINE PHOSPHATASE 73 U/L (45-117); TOTAL BILIRUBIN ADULT 0.3 MG/DL (0.2-1.0)
--- NOTE | 2017-04-20 09:13 | HHI.PR ---
Subjective Remarks In bed appears in nad. Patient is ambulating fairly well. No fever or chills overnight. Swelling in his right knee is improving. Denies cp,s ob, n/v/d/c. Objective Vitals Vital Signs Date Time Temp Pulse Resp B/P (MAP) Pulse Ox O2 Delivery O2 Flow Rate FiO2 04/20/17 04:00 98.5 72 18 136/92 (107) 93 04/20/17 00:00 97.7 81 18 127/71 (89) 91 04/19/17 20:00 98.5 81 18 132/76 (94) 93 04/19/17 16:23 99.0 78 20 125/66 (85) 93 04/19/17 12:18 98.3 98 20 128/66 (86) 94 I/O 04/19/17 04/19/17 04/19/17 04/20/17 04/20/17 04/20/17 07:00 15:00 23:00 07:00 15:00 23:00 Intake Total 1340 ml 450 ml 1580 ml Output Total 400 ml Balance 940 ml 450 ml 1580 ml Intake Oral 240 ml 480 ml IV Total 1100 ml 450 ml 1100 ml Output Urine Total 400 ml # Voids 4 3 # Bowel Movements 0 Result Diagram: 04/20/17 0615 04/20/17 0615 Imaging Last Impressions Chest X-Ray 04/19/17 0000 Signed Impressions: Service Date/Time: March 07:34 - CONCLUSION: Patchy infiltrates in the left lower lung. Livan Baez MD Knee X-Ray 04/18/17 1839 Signed Impressions: Service Date/Time: Tuesday, April 18, 2017 20:19 - CONCLUSION: Post surgical changes from total knee arthroplasty. Livan Baez MD Objective Remarks GENERAL: This is a well-nourished, well-developed patient, in no apparent distress. CARDIOVASCULAR: Regular rate and rhythm without murmurs, gallops, or rubs. RESPIRATORY: Clear to auscultation. Breath sounds equal bilaterally. No wheezes , rales, or rhonchi. GASTROINTESTINAL: Abdomen soft, non-tender, nondistended. No hepato-splenomegaly , or palpable masses. No guarding. MUSCULOSKELETAL: Right knee with marina in , swelling, and not much erythema. painful to palpation. at the surgical site. Right LE edema. NEUROLOGICAL: Awake and alert. Cranial nerves II through XII intact. Motor and sensory grossly within normal limits. Five out of 5 muscle strength in all muscle groups. Normal speech. A/P Problem List: (1) Severe sepsis ICD Code: A41.9 - Sepsis, unspecified organism; R65.20 - Severe sepsis without septic shock (2) History of total knee arthroplasty ICD Code: Z96.659 - Presence of unspecified artificial knee joint (3) Primary localized osteoarthrosis, lower leg ICD Code: M17.10 - Unilateral primary osteoarthritis, unspecified knee (4) Dehiscence of closure of skin ICD Code: T81.31XA - Disruption of external operation (surgical) wound, not elsewhere classified, initial encounter Assessment and Plan History of R TKA 2 weeks ago S/p I&D R TKA by Dr Diggs 04/18/17 Large hemarthrosis with wound dehiscence and draining Deep and superficial cultures taken in OR - follow cultures With severe sepsis criteria leukocytosis, tachycardia , LA 4.2, source joint. Monitor cbc, cultures. Ordered blood cultures. UA, CXR, LA. Vancomycin allergy. Started cefepime per ID recommendations. Consult ID ff, appreciate recommendations. Received 1L NS bolus continue IVF NS at 100 cc. Monitor LA per sepsis protocol. Monitor VS closely. Hold chemical anticoagulation due to large post-op hemarthrosis and ecchymosis On IV antibiotics vanco and ancef - follow cultures H/o [place] with stent placed 2 years ago per patient, says he is taking only aspirin , as his BP is low and can't tolerate medications. patient refusing any other medication, says his cardiology Dr Is Dr Madrid DVT ppx hold chemical ppx Discussed Condition With patient, nurse Gia Powell MD Apr 20, 2017 09:13
--- NOTE | 2017-04-20 13:29 | PD.ORT.PN ---
Subjective Subjective Remarks no issues. no CP/SOB Objective Vitals Vital Signs Date Time Temp Pulse Resp B/P (MAP) Pulse Ox O2 Delivery O2 Flow Rate FiO2 04/20/17 13:08 98.1 82 18 146/85 (105) 96 04/20/17 09:21 98.4 73 18 135/81 (99) 95 04/20/17 04:00 98.5 72 18 136/92 (107) 93 04/20/17 00:00 97.7 81 18 127/71 (89) 91 04/19/17 20:00 98.5 81 18 132/76 (94) 93 04/19/17 16:23 99.0 78 20 125/66 (85) 93 I/O 04/19/17 04/19/17 04/19/17 04/20/17 04/20/17 04/20/17 07:00 15:00 23:00 07:00 15:00 23:00 Intake Total 1340 ml 450 ml 1580 ml Output Total 400 ml Balance 940 ml 450 ml 1580 ml Intake Oral 240 ml 480 ml IV Total 1100 ml 450 ml 1100 ml Output Urine Total 400 ml # Voids 4 3 # Bowel Movements 0 Result Diagram: 04/20/17 0615 04/20/17 0615 Imaging Last 24 hours Impressions Knee X-Ray 04/18/17 183 Signed Impressions: Service Date/Time: Tuesday, April 18, 2017 20:19 - CONCLUSION: Post surgical changes from total knee arthroplasty. Livan Baez MD Objective Remarks Alert awake and oriented -3. No acute distress. Pulmonary: Normal respiratory effort. Right lower extremity: CKS in place, Neurovascularly intact, +EHL/FHL, dressing clean, dry and intact. + PT/DP pulses. Supple compartments. Negative Homans sign. Assessment & Plan Assessment and Plan s/p I&D R TKA POD#2 history of R TKA 2 weeks ago large hemarthrosis with wound dehiscence and draining deep and superficial cultures taken - follow cultures wbat ROM as tolerated hold chemical anticoagulation due to large post-op hemarthrosis and ecchymosis cultures + enterobacter ID consultation f/up dr. ceballos 1-2 weeks rx in chart Chilango Padilla Jr., MD Apr 20, 2017 13:29
[2017-04-20 13:46] LABS: LACTIC ACID GHOST NOT REPORTABLE
--- NOTE | 2017-04-20 14:24 | HHI.IDPN ---
Subjective Subjective Remarks is a 62 yo male with h/o I&D R TKA by Dr Diggs 04/18/17 which was elective. He reports having waited 5 years due to [facility] not approving [facility]. He then obtained insurance and saw .On post op visit when seen by ortho decided to bring him into the hospital for I&D of wound dehiscence site. Patient says he has no fevers or chills or night sweats. He has pain at the right knee at the surgical site. Denies chest pain or sob. No n/ v/d/c. Patient has some difficulty to walk due to pain. No n/v/d/c. Denies cough or palpitations. Patient reports no antibiotics prior to admission for any reason. Intra op cultures which appear to be pre patellar are positive for Gram negative rods. ID consulted for evaluation and Mment of right knee surgical wound dehiscence. Intraop note reviewed wound dehiscence and drainage color noted. Arthrotomy performed and knee joint irrigated. Overnight events reviewed. No fever No rash No diarrhea Walking in room. Antibiotics Cefepime IV Lines Line sites with no e.o infection Past Medical History reviewed Allergies: Uncoded Allergies: VANCOMYCIN (Allergy, Severe, hives, tongue swelling, 04/18/17) Objective . Vital Signs Date Time Temp Pulse Resp B/P (MAP) Pulse Ox O2 Delivery O2 Flow Rate FiO2 04/20/17 13:08 98.1 82 18 146/85 (105) 96 04/20/17 09:21 98.4 73 18 135/81 (99) 95 04/20/17 04:00 98.5 72 18 136/92 (107) 93 04/20/17 00:00 97.7 81 18 127/71 (89) 91 04/19/17 20:00 98.5 81 18 132/76 (94) 93 04/19/17 16:23 99.0 78 20 125/66 (85) 93 04/20/17 04/20/17 04/21/17 15:00 23:00 07:00 # Voids 3 . Laboratory Tests Test 04/19/17 05:42 04/20/17 06:15 White Blood Count 16.3 TH/MM3 16.9 TH/MM3 Red Blood Count 4.27 MIL/MM3 3.95 MIL/MM3 Hemoglobin 12.7 GM/DL 11.7 GM/DL Hematocrit 38.8 % 35.7 % Mean Corpuscular Volume 90.9 FL 90.3 FL Mean Corpuscular Hemoglobin 29.9 PG 29.7 PG Mean Corpuscular Hemoglobin Concent 32.9 % 32.9 % Red Cell Distribution Width 15.3 % 15.8 % Platelet Count 262 TH/MM3 248 TH/MM3 Mean Platelet Volume 7.7 FL 7.8 FL Neutrophils (%) (Auto) 75.7 % Lymphocytes (%) (Auto) 15.7 % Monocytes (%) (Auto) 7.7 % Eosinophils (%) (Auto) 0.6 % Basophils (%) (Auto) 0.3 % Neutrophils # (Auto) 12.8 TH/MM3 Lymphocytes # (Auto) 2.7 TH/MM3 Monocytes # (Auto) 1.3 TH/MM3 Eosinophils # (Auto) 0.1 TH/MM3 Basophils # (Auto) 0.1 TH/MM3 CBC Comment DIFF FINAL Differential Comment Laboratory Tests Test 04/19/17 05:42 04/19/17 10:35 04/19/17 16:14 04/20/17 06:15 Blood Urea Nitrogen 21 MG/DL 24 MG/DL Creatinine 1.30 MG/DL 1.11 MG/DL Random Glucose 135 MG/DL 111 MG/DL Calcium Level 8.4 MG/DL 8.2 MG/DL Sodium Level 140 MEQ/L 142 MEQ/L Potassium Level 4.7 MEQ/L 4.1 MEQ/L Chloride Level 107 MEQ/L 110 MEQ/L Carbon Dioxide Level 24.0 MEQ/L 25.2 MEQ/L Anion Gap 9 MEQ/L 7 MEQ/L Estimat Glomerular Filtration Rate 56 ML/MIN 67 ML/MIN Lactic Acid Level 4.2 mmol/L 2.8 mmol/L Total Protein 6.6 GM/DL Albumin 3.2 GM/DL Alkaline Phosphatase 73 U/L Aspartate Amino Transf (AST/SGOT) 11 U/L Alanine Aminotransferase (ALT/SGPT) 21 U/L Total Bilirubin 0.3 MG/DL C-Reactive Protein 0.89 MG/DL Test 04/20/17 11:35 Lactic Acid Level 2.6 mmol/L Microbiology Date/Time Source Procedure Growth Status 04/19/17 10:35 Blood Peripheral Aerobic Blood Culture - Preliminary NO GROWTH IN 1 DAY Resulted 04/19/17 10:35 Blood Peripheral Anaerobic Blood Culture - Preliminary NO GROWTH IN 1 DAY Resulted 04/19/17 10:30 Blood Peripheral Aerobic Blood Culture - Preliminary NO GROWTH IN 1 DAY Resulted 04/19/17 10:30 Blood Peripheral Anaerobic Blood Culture - Preliminary NO GROWTH IN 1 DAY Resulted 04/18/17 21:30 Wound Knee Fungal Smear - Final NO FUNGAL ELEMENTS SEEN. Resulted 04/18/17 21:30 Wound Knee Fungal Culture Pending Resulted 04/18/17 21:30 Wound Knee Acid Fast Stain Pending Received 04/18/17 21:30 Wound Knee Mycobacterial Culture Pending Received 04/18/17 21:30 Wound Knee Gram Stain - Final Complete 04/18/17 21:30 Wound Culture - Final Enterobacter Cloacae Complete 04/18/17 21:30 Wound Knee Fungal Smear - Final NO FUNGAL ELEMENTS SEEN. Resulted 04/18/17 21:30 Wound Knee Fungal Culture Pending Resulted 04/18/17 21:30 Wound Knee Acid Fast Stain Pending Received 04/18/17 21:30 Wound Knee Mycobacterial Culture Pending Received 04/18/17 21:30 Wound Knee Gram Stain - Final Complete 04/18/17 21:30 Wound Culture - Final Enterobacter Cloacae Complete Imaging Last Impressions Chest X-Ray 04/19/17 0000 Signed Impressions: Service Date/Time: March 07:34 - CONCLUSION: Patchy infiltrates in the left lower lung. Livan Baez MD Knee X-Ray 04/18/17 1839 Signed Impressions: Service Date/Time: Tuesday, April 18, 2017 20:19 - CONCLUSION: Post surgical changes from total knee arthroplasty. Livan Baez MD Physical Exam GENERAL: This is a well-nourished, well-developed patient, in no apparent distress. SKIN: No rashes, ecchymoses or lesions. Cool and dry. HEAD: Atraumatic. Normocephalic. No temporal or scalp tenderness. EYES: Pupils equal round and reactive. Extraocular motions intact. No scleral icterus. No injection or drainage. ENT: Nose without bleeding, purulent drainage or septal hematoma. Throat without erythema, tonsillar hypertrophy or exudate. Uvula midline. Airway patent. NECK: Trachea midline. No JVD or lymphadenopathy. Supple, nontender, no meningeal signs. CARDIOVASCULAR: Regular rate and rhythm without murmurs, gallops, or rubs. RESPIRATORY: Clear to auscultation. Breath sounds equal bilaterally. No wheezes , rales, or rhonchi. GASTROINTESTINAL: Abdomen soft, non-tender, nondistended. No hepato-splenomegaly , or palpable masses. No guarding. MUSCULOSKELETAL: Right knee with sutures noted and very minimal erythema along suture line. There is no post op dressing over it. NEUROLOGICAL: Awake and alert. Cranial nerves II through XII intact. Motor and sensory grossly within normal limits. Five out of 5 muscle strength in all muscle groups. Normal speech. Psych cooperative IV line sites with no e.o infection. Assessment & Plan Remarks Sepsis present on admission source right knee infection Right knee surgical wound dehiscence with infection Will treat as hardware infection in view of new joint and surgical area infection. GNR from pre pattelar area cultures Right TKR with hardware in place. Recs DC Cefepime IV Start Ceftriaxone IV Start Cipro oral Follow cultures Follow clinically WBC continues to be high at 16 today, lactic acid 2.6. Recommend repeat lactic acid and CBC in am. Bacteremia has to be ruled out to place a PICC Line. If blood cultures negative at 48 hours and WBC count normal or downtrending will consider discharge if following conditions met: 1. WBC normal or down trending. 2. lactic acid normal. 3. Surgical site no change 4. Blood cultures negative at 48 hours. No PICC till cleared by ID. I would recommend treating this as possible hardware infection with IV antibiotics for 6 weeks to prevent any future issues. d/w above plan. covering for me this weekend. Jessica Sandy MD Apr 20, 2017 14:24
[2017-04-20] MEDS ORDERED: CEFT1INJ5 IV (14:30)
[2017-04-20] MEDS ORDERED: CIPR-9 PO (14:30)
[2017-04-20] MEDS ORDERED: EPIN1INJ21 IV PUSH (14:30)
[2017-04-20] MEDS ORDERED: EPIN1INJ21 SQ (14:30)
[2017-04-20] MEDS ORDERED: SOLU250I IV PUSH (14:30)
--- NOTE | 2017-04-20 14:33 | HHI.FF ---
cc: Smiley Lockett MD Infusion Therapy Location of Infusion Therapy: [facility] IV Infusion Order Patient Information Appointment Date: Apr 21, 2017 Patient Weight 108.3 kg Diagnosis: Diagnosis Surgical site infection Hardware infection knee Enterobacter cloacae infection knee Uncoded Allergies: VANCOMYCIN (Allergy, Severe, hives, tongue swelling, 04/18/17) Administer Medication Ceftriaxone 2 grams IV q 24 hours Start Treatment: Apr 21, 2017 Stop Treatment: May 31, 2017 Additional Information Venous access: PICC Line Additional Instructions [x] Peripheral flush and dressing changes per protocol [x] Implanted port and central glueline worker: * Implanted port: 10 ml Normal Saline followed by 5 ml Heparin 100 units/ml Heparin flush after each use and monthly to maintain. [] May leave port accessed during therapy. [] May leave peripheral site accessed for duration of therapy. [x] If patient has SOB or respiratory distress, check oxygen saturation. If less than 90% or clinical signs of respiratory distress, administer oxygen at 2 L/min. via nasal cannula and notify physician. [x] Anaphylaxis/Reaction orders: * Stop infusion. * Keep IV line open with saline flush. * Notify physician. * Monitor vital signs every 15 minutes until symptoms resolve. * Check Oxygen saturation; Oxygen at 2 L/min. via nasal cannula if less than 90% or clinical signs of respiratory distress. * Administer diphenhydramine (Benadryl) 25 mg IV STAT, (unless patient has received as pre-med). May repeat once, if necessary. * Solu-Cortef 250 mg IVP over 30-60 seconds, use 100 mg vials for each dissolution. * Epinephrine (1mg/1 ml) 0.3 mg subcutaneously or IVP now with any signs of respiratory distress. * Check with physician for new additional pre-med orders if patient is re- challenged or re-treated. [x] May remove PICC line when treatment complete, after confirming with Physician. [x] If the patient is admitted to the hospital, the ED, or transferred via [facility] , complete transfer form including medication reconciliation order sheet. Laboratory Tests Weekly Labs: CBC w/diff, Creatinine, CRP, LFT's (Hepatic function test) Additional Information Please draw weekly labs, Call with abnormal labs and/or change in clinical condition or problems to: Dr.Reba Lockett or or covering ID Physician Follow up appt: Patient to schedule follow up appt with Dr.Reba Lockett within 2 weeks post discharge. Follow up with PCP Follow up with other MDs as planned. Counseling: Counseled about medication side effects Counseled about PICC line care and hand hygiene. Jessica Sandy MD Apr 20, 2017 14:33
[2017-04-20] MEDS: cefTRIAXone INJ 2,000 MG in SODIUM CHLORIDE 0.9% INJ 100 ML IV SCH (16:05)
[2017-04-20] MEDS: CIPROFLOXACIN 500 MG TAB PO SCH ×2 (16:05→20:25)
[2017-04-20] MEDS: MORPHINE SULFATE 4 MG/ML INJ IV PUSH PRN (16:05)
[2017-04-21] VITALS (7 sets, daily range): BP systolic 134–141; BP diastolic 74–89; PULSE 72–90; RESP 18–20; TEMP 98–98.2; O2SAT 92–97
[2017-04-21] MEDS: ZOLPIDEM TARTRATE 5 MG TAB PO PRN ×2 (00:40→22:14)
[2017-04-21] MEDS: oxyCODONE/ACETAMINOPHEN 5 MG/325 MG TAB PO PRN ×6 (00:41→21:16)
[2017-04-21] MEDS: SODIUM CHLOR 0.9% 1000 ML INJ 1,000 ML IV SCH ×2 (06:39→15:33)
--- NOTE | 2017-04-21 08:19 | HHI.PR ---
Subjective Remarks This is a pleasant 62 y/o with status post recent Right knee surgery, the patient developed a hematoma, admitted with Diagnosis of sepsis, he had I&D R TKA by Dr Diggs 04/18/17. as we know he has OA, CAD status post PCI and stent placement two years ago. he is been ambulating, no fever, nausea, vomit or diarrhea. ID specialist following, on yesterday evaluation recommended to discontinue Cefepime and start on Ceftriaxone IV and Cipro by mouth, no PICC line until blood culture negative for 48 hours. 04/21: Stable seen in his bedroom, no nausea, vomit or diarrhea awaiting final by ID specialist for discharge. Objective Vital Signs Date Time Temp Pulse Resp B/P (MAP) Pulse Ox O2 Delivery O2 Flow Rate FiO2 04/21/17 05:01 98.1 76 18 138/89 (105) 95 04/21/17 02:10 18 04/21/17 00:24 98.1 72 18 137/77 (97) 95 04/20/17 20:47 98.4 77 18 136/74 (94) 96 04/20/17 16:40 99.5 77 18 136/91 (106) 95 04/20/17 16:10 18 04/20/17 13:08 98.1 82 18 146/85 (105) 96 04/20/17 09:21 98.4 73 18 135/81 (99) 95 I/O 04/20/17 04/20/17 04/20/17 04/21/17 04/21/17 04/21/17 07:00 15:00 23:00 07:00 15:00 23:00 Intake Total 520 ml Balance 520 ml Intake Oral 520 ml # Voids 3 5 3 # Bowel Movements 1 Result Diagram: 04/20/17 0615 04/20/17 0615 Imaging Last Impressions Chest X-Ray 04/19/17 0000 Signed Impressions: Service Date/Time: March 07:34 - CONCLUSION: Patchy infiltrates in the left lower lung. Livan Baez MD Knee X-Ray 04/18/17 1839 Signed Impressions: Service Date/Time: Tuesday, April 18, 2017 20:19 - CONCLUSION: Post surgical changes from total knee arthroplasty. Livan Baez MD Procedures S/p I&D R TKA by Dr Diggs 04/18/17 Other Results Laboratory Tests Test 04/19/17 10:00 04/20/17 06:15 04/20/17 15:02 Urine Color YELLOW Urine Turbidity CLEAR Urine pH 5.5 Urine Specific [place] 1.024 Urine Protein NEG mg/dL Urine Glucose (UA) 150 mg/dL Urine Ketones TRACE mg/dL Urine Occult Blood SMALL Urine Nitrite NEG Urine Bilirubin NEG Urine Urobilinogen LESS THAN 2.0 MG/DL Urine Leukocyte Esterase NEG Urine RBC 1 /hpf Urine WBC LESS THAN 1 /hpf Urine Mucus FEW /lpf Microscopic Urinalysis Comment CULT NOT INDICATED White Blood Count 16.9 TH/MM3 Red Blood Count 3.95 MIL/MM3 Hemoglobin 11.7 GM/DL Hematocrit 35.7 % Mean Corpuscular Volume 90.3 FL Mean Corpuscular Hemoglobin 29.7 PG Mean Corpuscular Hemoglobin Concent 32.9 % Red Cell Distribution Width 15.8 % Platelet Count 248 TH/MM3 Mean Platelet Volume 7.8 FL Neutrophils (%) (Auto) 75.7 % Lymphocytes (%) (Auto) 15.7 % Monocytes (%) (Auto) 7.7 % Eosinophils (%) (Auto) 0.6 % Basophils (%) (Auto) 0.3 % Neutrophils # (Auto) 12.8 TH/MM3 Lymphocytes # (Auto) 2.7 TH/MM3 Monocytes # (Auto) 1.3 TH/MM3 Eosinophils # (Auto) 0.1 TH/MM3 Basophils # (Auto) 0.1 TH/MM3 CBC Comment DIFF FINAL Differential Comment Blood Urea Nitrogen 24 MG/DL Creatinine 1.11 MG/DL Random Glucose 111 MG/DL Total Protein 6.6 GM/DL Albumin 3.2 GM/DL Calcium Level 8.2 MG/DL Alkaline Phosphatase 73 U/L Aspartate Amino Transf (AST/SGOT) 11 U/L Alanine Aminotransferase (ALT/SGPT) 21 U/L Total Bilirubin 0.3 MG/DL Sodium Level 142 MEQ/L Potassium Level 4.1 MEQ/L Chloride Level 110 MEQ/L Carbon Dioxide Level 25.2 MEQ/L Anion Gap 7 MEQ/L Estimat Glomerular Filtration Rate 67 ML/MIN C-Reactive Protein 0.89 MG/DL Lactic Acid Level 2.0 mmol/L Objective Remarks GENERAL: Obesity, no distress. CARDIOVASCULAR: Regular rate and rhythm without murmurs, gallops, or rubs. RESPIRATORY: Clear to auscultation. Breath sounds equal bilaterally. No wheezes , rales, or rhonchi. GASTROINTESTINAL: Abdomen soft, non-tender, nondistended. No hepato-splenomegaly , or palpable masses. No guarding. MUSCULOSKELETAL: Right knee with marina in , swelling, and not much erythema. painful to palpation. at the surgical site. Right LE edema. NEUROLOGICAL: Awake and alert. No focal deficits. Medications and IVs Current Medications Medications (Trade) Dose Ordered Sig/Jessee Route Start Time Stop Time Status Last Admin Patient Own Medication PT OWN MED: Buprenorphine-Naloxon... DAILY PO 04/19/17 09:00 Future Hold Sodium Chloride 1,000 ml @ 100 mls/hr Q10H IV 04/18/17 18:39 04/19/17 05:22 (NS Flush) 2 ml UNSCH PRN IVF 04/18/17 18:45 (NS Flush) 2 ml BID IVF 04/18/17 21:00 04/20/17 20:26 (Morphine Inj) 3 mg Q3H PRN IV PUSH 04/18/17 18:45 04/20/17 16:05 (Percocet 5-325 Mg) 1 tab Q4H PRN PO 04/18/17 18:45 (Percocet 5-325 Mg) 2 tab Q4H PRN PO 04/18/17 18:45 04/21/17 05:25 (Theragran M Tab) 1 tab BID PO 04/19/17 21:00 06/18/17 20:59 04/20/17 20:25 (Zofran Inj) 4 mg Q6H PRN IVP 04/18/17 18:45 (Ambien) 5 mg HS PRN PO 04/18/17 18:45 04/21/17 00:40 (Benadryl Inj) 25 mg Q6H PRN IV PUSH 04/18/17 18:45 04/18/17 21:13 (Narcan Inj) 0.4 mg UNSCH PRN IV PUSH 04/19/17 12:00 (Eliana-Colace) 1 tab BID PO 04/19/17 21:00 04/20/17 20:25 (Milk Of Magnesia Liq) 30 ml Q12H PRN PO 04/19/17 12:00 (Senokot) 17.2 mg Q12H PRN PO 04/19/17 12:00 (Dulcolax Supp) 10 mg DAILY PRN RECTAL 04/19/17 12:00 (Lactulose Liq) 30 ml DAILY PRN PO 04/19/17 12:00 Ceftriaxone Sodium 2000 mg/ Sodium Chloride 100 ml @ 200 mls/hr Q24H IV 04/20/17 15:00 04/20/17 16:05 (Cipro) 500 mg Q12HR PO 04/20/17 14:45 04/20/17 20:25 A/P Assessment and Plan History of R TKA 2 weeks ago S/p I&D R TKA by Dr Diggs 04/18/17 Large hemarthrosis with wound dehiscence and draining Deep and superficial cultures taken in OR - follow cultures With severe sepsis criteria leukocytosis, tachycardia , LA 4.2, source joint. Monitor cbc, cultures. Ordered blood cultures. UA, CXR, LA. Vancomycin allergy. as per ID specialist recommended to discontinue Cefepime and start Ceftriaxone IV and Cipro by mouth, no PICC line until blood culture negative for 48 hours. Hold chemical anticoagulation due to large post-op hemarthrosis and ecchymosis H/o [place] with stent placed 2 years ago per patient, says he is taking only aspirin , as his BP is low and can't tolerate medications. patient refusing any other medication, says his cardiology Dr Is Dr [place] Obesity strongly recommended to stop smoking. DVT ppx hold chemical ppx Discussed Condition With Discharge Planning Awaiting for final recommendations by ID specialist for discharge. Louie Khan MD Apr 21, 2017 08:19
[2017-04-21 08:41] LABS: HEMATOCRIT 38.2 % (39.0-51.0); MEAN CORPUSCULAR HEMOGLOBIN 29.5 PG (27.0-34.0); MEAN CORPUSCULAR HGB CONC 33.2 % (32.0-36.0); PLATELET COUNT 275 TH/MM3 (150-450); RED BLOOD COUNT 4.29 MIL/MM3 (4.50-5.90); RED CELL DISTRIBUTION WIDTH 15.6 % (11.6-17.2); REVIEW FLAG FINAL; WHITE BLOOD COUNT 13.8 TH/MM3 (4.0-11.0)
[2017-04-21] MEDS: SODIUM CHLORIDE 0.9% FLUSH 5 ML FLUSH IVF SCH ×2 (08:43→21:17)
[2017-04-21] MEDS: CIPROFLOXACIN 500 MG TAB PO SCH ×2 (08:44→21:15)
[2017-04-21] MEDS: DOCUSATE SODIUM 50 MG/SENNA 8.6 MG TAB PO SCH ×2 (08:45→21:16)
[2017-04-21] MEDS: MULTIVITAMINS/MINERALS THERAPEUTIC TAB PO SCH ×2 (08:46→21:15)
[2017-04-21 09:03] LABS: BICARBONATE 24.9 MEQ/L (21.0-32.0); POTASSIUM 3.8 MEQ/L (3.5-5.1)
[2017-04-21] MEDS: cefTRIAXone INJ 2,000 MG in SODIUM CHLORIDE 0.9% INJ 100 ML IV SCH (15:16)
[2017-04-22 01:39] VITALS: BP 125/75; PULSE 75; RESP 18; TEMP 98
[2017-04-22] MEDS: SODIUM CHLOR 0.9% 1000 ML INJ 1,000 ML IV SCH ×2 (01:44→08:52)
[2017-04-22] MEDS: oxyCODONE/ACETAMINOPHEN 5 MG/325 MG TAB PO PRN ×4 (02:17→15:20)
[2017-04-22] MEDS: MORPHINE SULFATE 4 MG/ML INJ IV PUSH PRN (04:47)
[2017-04-22 05:02] VITALS: BP 122/66; PULSE 70; RESP 18; TEMP 98.5; O2SAT 95
[2017-04-22] MEDS: CIPROFLOXACIN 500 MG TAB PO SCH (07:47)
[2017-04-22] MEDS: MULTIVITAMINS/MINERALS THERAPEUTIC TAB PO SCH (07:48)
[2017-04-22] MEDS: DOCUSATE SODIUM 50 MG/SENNA 8.6 MG TAB PO SCH (07:48)
[2017-04-22] MEDS: SODIUM CHLORIDE 0.9% FLUSH 5 ML FLUSH IVF SCH (07:49)
--- NOTE | 2017-04-22 08:16 | HHI.PR ---
Subjective Remarks This is a pleasant 62 y/o with status post recent Right knee surgery, the patient developed a hematoma, admitted with Diagnosis of sepsis, he had I&D R TKA by Dr Diggs 04/18/17. as we know he has OA, CAD status post PCI and stent placement two years ago. he is been ambulating, no fever, nausea, vomit or diarrhea. ID specialist following, on yesterday evaluation recommended to discontinue Cefepime and start on Ceftriaxone IV and Cipro by mouth, no PICC line until blood culture negative for 48 hours. 04/22: Stable in his bedroom, discussed with ID specialist Jessica Sandy he is in status post I and D of the right total knee arthroplasty POD#4, history of right TKA two weeks ago, Weight bearing as tolerated, recommended to follow with Doctor Dontae in one to two weeks. No nausea, vomit or diarrhea. Objective Vital Signs Date Time Temp Pulse Resp B/P (MAP) Pulse Ox O2 Delivery O2 Flow Rate FiO2 04/22/17 05:02 98.5 70 18 122/66 (84) 95 04/22/17 01:39 98.0 75 18 125/75 (92) 04/21/17 23:03 78 04/21/17 21:14 98.2 90 18 141/80 (100) 97 04/21/17 16:14 98.2 77 20 140/84 (102) 94 04/21/17 12:00 98.0 78 20 134/74 (94) 94 I/O 04/21/17 04/21/17 04/21/17 04/22/17 04/22/17 04/22/17 07:00 15:00 23:00 07:00 15:00 23:00 Intake Total 560 ml Balance 560 ml Intake Oral 560 ml # Voids 6 # Bowel Movements 2 Result Diagram: 04/21/17 0643 04/21/17 0645 Imaging Last Impressions Chest X-Ray 04/19/17 0000 Signed Impressions: Service Date/Time: March 07:34 - CONCLUSION: Patchy infiltrates in the left lower lung. Livan Baez MD Knee X-Ray 04/18/17 1839 Signed Impressions: Service Date/Time: Tuesday, April 18, 2017 20:19 - CONCLUSION: Post surgical changes from total knee arthroplasty. Livan Baez MD Procedures S/p I&D R TKA by Dr Diggs 04/18/17 Other Results Laboratory Tests Test 04/19/17 10:00 04/20/17 06:15 04/20/17 15:02 04/21/17 06:43 Urine Color YELLOW Urine Turbidity CLEAR Urine pH 5.5 Urine Specific [place] 1.024 Urine Protein NEG mg/dL Urine Glucose (UA) 150 mg/dL Urine Ketones TRACE mg/dL Urine Occult Blood SMALL Urine Nitrite NEG Urine Bilirubin NEG Urine Urobilinogen LESS THAN 2.0 MG/DL Urine Leukocyte Esterase NEG Urine RBC 1 /hpf Urine WBC LESS THAN 1 /hpf Urine Mucus FEW /lpf Microscopic Urinalysis Comment CULT NOT INDICATED Neutrophils (%) (Auto) 75.7 % Lymphocytes (%) (Auto) 15.7 % Monocytes (%) (Auto) 7.7 % Eosinophils (%) (Auto) 0.6 % Basophils (%) (Auto) 0.3 % Neutrophils # (Auto) 12.8 TH/MM3 Lymphocytes # (Auto) 2.7 TH/MM3 Monocytes # (Auto) 1.3 TH/MM3 Eosinophils # (Auto) 0.1 TH/MM3 Basophils # (Auto) 0.1 TH/MM3 CBC Comment DIFF FINAL Differential Comment Blood Urea Nitrogen 24 MG/DL Creatinine 1.11 MG/DL Random Glucose 111 MG/DL Total Protein 6.6 GM/DL Albumin 3.2 GM/DL Calcium Level 8.2 MG/DL Alkaline Phosphatase 73 U/L Aspartate Amino Transf (AST/SGOT) 11 U/L Alanine Aminotransferase (ALT/SGPT) 21 U/L Total Bilirubin 0.3 MG/DL Sodium Level 142 MEQ/L Potassium Level 4.1 MEQ/L Chloride Level 110 MEQ/L Carbon Dioxide Level 25.2 MEQ/L C-Reactive Protein 0.89 MG/DL Lactic Acid Level 2.0 mmol/L White Blood Count 13.8 TH/MM3 Red Blood Count 4.29 MIL/MM3 Hemoglobin 12.7 GM/DL Hematocrit 38.2 % Mean Corpuscular Volume 89.0 FL Mean Corpuscular Hemoglobin 29.5 PG Mean Corpuscular Hemoglobin Concent 33.2 % Red Cell Distribution Width 15.6 % Platelet Count 275 TH/MM3 Mean Platelet Volume 7.8 FL Test 04/21/17 06:45 Blood Urea Nitrogen 19 MG/DL Creatinine 0.98 MG/DL Random Glucose 81 MG/DL Calcium Level 8.7 MG/DL Sodium Level 138 MEQ/L Potassium Level 3.8 MEQ/L Chloride Level 104 MEQ/L Carbon Dioxide Level 24.9 MEQ/L Anion Gap 9 MEQ/L Estimat Glomerular Filtration Rate 78 ML/MIN Objective Remarks GENERAL: Obesity, no distress. CARDIOVASCULAR: Regular rate and rhythm without murmurs, gallops, or rubs. RESPIRATORY: Clear to auscultation. Breath sounds equal bilaterally. No wheezes , rales, or rhonchi. GASTROINTESTINAL: Abdomen soft, non-tender, nondistended. No hepato-splenomegaly , or palpable masses. No guarding. MUSCULOSKELETAL: Right knee with marina in , swelling, and not much erythema. painful to palpation. at the surgical site. Right LE edema. NEUROLOGICAL: Awake and alert. No focal deficits. Medications and IVs Current Medications Medications (Trade) Dose Ordered Sig/Jessee Route Start Time Stop Time Status Last Admin Patient Own Medication PT OWN MED: Buprenorphine-Naloxon... DAILY PO 04/19/17 09:00 Future Hold Sodium Chloride 1,000 ml @ 100 mls/hr Q10H IV 04/18/17 18:39 04/19/17 05:22 (NS Flush) 2 ml UNSCH PRN IVF 04/18/17 18:45 (NS Flush) 2 ml BID IVF 04/18/17 21:00 04/22/17 07:49 (Morphine Inj) 3 mg Q3H PRN IV PUSH 04/18/17 18:45 04/22/17 04:47 (Percocet 5-325 Mg) 1 tab Q4H PRN PO 04/18/17 18:45 (Percocet 5-325 Mg) 2 tab Q4H PRN PO 04/18/17 18:45 04/22/17 07:46 (Theragran M Tab) 1 tab BID PO 04/19/17 21:00 06/18/17 20:59 04/22/17 07:48 (Zofran Inj) 4 mg Q6H PRN IVP 04/18/17 18:45 (Ambien) 5 mg HS PRN PO 04/18/17 18:45 04/21/17 22:14 (Benadryl Inj) 25 mg Q6H PRN IV PUSH 04/18/17 18:45 04/18/17 21:13 (Narcan Inj) 0.4 mg UNSCH PRN IV PUSH 04/19/17 12:00 (Eliana-Colace) 1 tab BID PO 04/19/17 21:00 04/22/17 07:48 (Milk Of Magnesia Liq) 30 ml Q12H PRN PO 04/19/17 12:00 (Senokot) 17.2 mg Q12H PRN PO 04/19/17 12:00 (Dulcolax Supp) 10 mg DAILY PRN RECTAL 04/19/17 12:00 (Lactulose Liq) 30 ml DAILY PRN PO 04/19/17 12:00 Ceftriaxone Sodium 2000 mg/ Sodium Chloride 100 ml @ 200 mls/hr Q24H IV 04/20/17 15:00 04/21/17 15:16 (Cipro) 500 mg Q12HR PO 04/20/17 14:45 04/22/17 07:47 A/P Assessment and Plan 1. History of R TKA 2 weeks ago S/p I&D R TKA by Dr Diggs 04/18/17 Large hemarthrosis with wound dehiscence and draining Deep and superficial cultures taken in OR - follow cultures Discussed with Infectious Disease specialist Doctor Jessica Sandy, recommended to discharge Home and continue with Infusion center to continue Ceftriaxone 2 grams daily until May 31 2017. as per orthopedic Surgery follow with Doctor Diggs in one to two weeks. awaiting final recommendations by Electronics System Mechanic for discharge. the patient has to receive his dose of Ceftriaxone for today and Electronics System Mechanic aware that everything has to be arranged for IV Infusion center for tomorrow. Hold chemical anticoagulation due to large post-op hemarthrosis and ecchymosis H/o [place] with stent placed 2 years ago per patient, says he is taking only aspirin , as his BP is low and can't tolerate medications. patient refusing any other medication, says his cardiology Dr Is Dr [place] Obesity strongly recommended diet and exercise. DVT ppx hold chemical ppx Discussed Condition With Patient, Nurse, Hospitalist JOSSELINE Miss Samayoa, editorial project manager Miss Cueva Discharge Planning Discharge later today when everything arranged by Electronics System Mechanic. Louie Khan MD Apr 22, 2017 08:16
[2017-04-22 08:20] VITALS: BP 129/94; PULSE 77; RESP 18; TEMP 97.7; O2SAT 95
--- NOTE | 2017-04-22 11:11 | PD.ORT.PN ---
Subjective Subjective Remarks Patient doing well this morning. Pain relatively well controlled. Denies chest pain or shortness breath. No fevers overnight Objective Vitals Vital Signs Date Time Temp Pulse Resp B/P (MAP) Pulse Ox O2 Delivery O2 Flow Rate FiO2 04/22/17 08:20 97.7 77 18 129/94 (106) 95 04/22/17 05:02 98.5 70 18 122/66 (84) 95 04/22/17 01:39 98.0 75 18 125/75 (92) 04/21/17 23:03 78 04/21/17 21:14 98.2 90 18 141/80 (100) 97 04/21/17 16:14 98.2 77 20 140/84 (102) 94 04/21/17 12:00 98.0 78 20 134/74 (94) 94 I/O 04/21/17 04/21/17 04/21/17 04/22/17 04/22/17 04/22/17 07:00 15:00 23:00 07:00 15:00 23:00 Intake Total 560 ml Balance 560 ml Intake Oral 560 ml # Voids 6 # Bowel Movements 2 Result Diagram: 04/21/17 0643 04/21/17 0645 Imaging Last 24 hours Impressions Knee X-Ray 04/18/17 1839 Signed Impressions: Service Date/Time: Tuesday, April 18, 2017 20:19 - CONCLUSION: Post surgical changes from total knee arthroplasty. Livan Baez MD Objective Remarks Alert awake and oriented -3. No acute distress. Pulmonary: Normal respiratory effort. Right lower extremity: CKS in place, Neurovascularly intact, +EHL/FHL, dressing clean, dry and intact. + PT/DP pulses. Supple compartments. Negative Homans sign. Assessment & Plan Assessment and Plan s/p I&D R TKA POD#4 history of R TKA 2 weeks ago large hemarthrosis with wound dehiscence and draining deep and superficial cultures taken wbat ROM as tolerated hold chemical anticoagulation due to large post-op hemarthrosis and ecchymosis cultures + enterobacter ID consultation f/up dr. ceballos 1-2 weeks rx in chart Xena Gaytan MD Apr 22, 2017 11:11
[2017-04-22 12:11] VITALS: BP 125/83; PULSE 78; RESP 18; TEMP 98.3; O2SAT 94
--- NOTE | 2017-04-22 12:42 | RADRPT ---
EXAM DATE/TIME: 04/22/2017 12:12 [facility] COMPARISON: CHEST SINGLE AP, April 19, 2017, 7:34. INDICATIONS : Picc Line placement. MEDICAL HISTORY : None. SURGICAL HISTORY : Total right knee arthroplasty. ENCOUNTER: Subsequent ACUITY: 1 day PAIN SCORE: 0/10 LOCATION: Bilateral chest FINDINGS: A single view of the chest demonstrates the lungs to be symmetrically aerated without evidence of mas s, infiltrate or effusion. The cardiomediastinal contours are unremarkable. Osseous structures are intact. The PICC line catheter tip projects over the mid superior vena cava. CONCLUSION: 1. PICC line tip mid SVC. 2. The lungs are clear. Livan Baez MD on April 22, 2017 at 12:40 Board Certified Radiologist. This report was verified electronically.
[2017-04-22] MEDS ORDERED: SODIUM CHLORIDE 0.9% FLUSH 10 ML FLUSH IV FLUSH PRN (12:45)
--- NOTE | 2017-04-22 15:10 | HHI.DS ---
Discharge Summary Admission Date Apr 18, 2017 at 11:57 Discharge Date: Apr 22, 2017 Admitting Diagnosis (1) Severe sepsis ICD Code: A41.9 - Sepsis, unspecified organism; R65.20 - Severe sepsis without septic shock Diagnosis: Principal (2) History of total knee arthroplasty ICD Code: Z96.659 - Presence of unspecified artificial knee joint Diagnosis: Principal (3) Primary localized osteoarthrosis, lower leg ICD Code: M17.10 - Unilateral primary osteoarthritis, unspecified knee Diagnosis: Principal (4) Dehiscence of closure of skin ICD Code: T81.31XA - Disruption of external operation (surgical) wound, not elsewhere classified, initial encounter Diagnosis: Principal Procedures S/p I&D R TKA by Dr Diggs 04/18/17 Brief History - From Admission Patient is a pleasant 62 yo male with PMH of recent right knee surgery and now with possible joint infection. Patient had hematoma at the surgical site. He is at this time with tachycardia and has leukocytosis, meeting sepsis criteria. Patient is S/p I&D R TKA by Dr Diggs 04/18/17. The hospitalist is consulted for further evaluation and medical management. Patient doesn't appear in acute distress at this time. Patient says he has no fevers or chills. He has pain at the right knee at the surgical site. Denies chest pain or sob. No n/v/d/c. Patient has some difficulty to walk due to pain. No n/v/d/c. Able to eat. Denies cough or palpitations. he has a h/o RI with stent placed 2 years ago says he is taking only aspirin, as his BP is low and can't tolerate medications. patient refusing any other medication, says his cardiology Dr Is Dr Madrid. CBC/BMP: 04/21/17 0643 04/21/17 0645 Significant Findings Laboratory Tests Test 04/19/17 16:14 04/20/17 06:15 04/20/17 11:35 04/20/17 15:02 Lactic Acid Level 2.8 mmol/L (0.4-2.0) 2.6 mmol/L (0.4-2.0) White Blood Count 16.9 TH/MM3 (4.0-11.0) Red Blood Count 3.95 MIL/MM3 (4.50-5.90) Hemoglobin 11.7 GM/DL (13.0-17.0) Hematocrit 35.7 % (39.0-51.0) Neutrophils (%) (Auto) 75.7 % (16.0-70.0) Neutrophils # (Auto) 12.8 TH/MM3 (1.8-7.7) Monocytes # (Auto) 1.3 TH/MM3 (0-0.9) Blood Urea Nitrogen 24 MG/DL (7-18) Random Glucose 111 MG/DL (74-106) Albumin 3.2 GM/DL (3.4-5.0) Calcium Level 8.2 MG/DL (8.5-10.1) Aspartate Amino Transf (AST/SGOT) 11 U/L (15-37) Chloride Level 110 MEQ/L (98-107) Estimat Glomerular Filtration Rate 67 ML/MIN (>89) C-Reactive Protein 0.89 MG/DL (0.00-0.30) Test 04/21/17 06:43 04/21/17 06:45 White Blood Count 13.8 TH/MM3 (4.0-11.0) Red Blood Count 4.29 MIL/MM3 (4.50-5.90) Hemoglobin 12.7 GM/DL (13.0-17.0) Hematocrit 38.2 % (39.0-51.0) Blood Urea Nitrogen 19 MG/DL (7-18) Estimat Glomerular Filtration Rate 78 ML/MIN (>89) Imaging Last Impressions Chest X-Ray 04/19/17 0000 Signed Impressions: Service Date/Time: March 07:34 - CONCLUSION: Patchy infiltrates in the left lower lung. Livan Baez MD Knee X-Ray 04/18/17 1839 Signed Impressions: Service Date/Time: Tuesday, April 18, 2017 20:19 - CONCLUSION: Post surgical changes from total knee arthroplasty. Livan Baez MD PE at Discharge GENERAL: Obesity, no distress. CARDIOVASCULAR: Regular rate and rhythm without murmurs, gallops, or rubs. RESPIRATORY: Clear to auscultation. Breath sounds equal bilaterally. No wheezes , rales, or rhonchi. GASTROINTESTINAL: Abdomen soft, non-tender, nondistended. No hepato-splenomegaly , or palpable masses. No guarding. MUSCULOSKELETAL: Right knee with marina in , swelling, and not much erythema. painful to palpation. at the surgical site. Right LE edema. NEUROLOGICAL: Awake and alert. No focal deficits. Hospital Course This is a pleasant 62 y/o with status post recent Right knee surgery, the patient developed a hematoma, admitted with Diagnosis of sepsis, he had I&D R TKA by Dr Diggs 04/18/17. as we know he has OA, CAD status post PCI and stent placement two years ago. he is been ambulating, no fever, nausea, vomit or diarrhea. ID specialist following, on yesterday evaluation recommended to discontinue Cefepime and start on Ceftriaxone IV and Cipro by mouth, no PICC line until blood culture negative for 48 hours. 04/22: Stable in his bedroom, discussed with ID specialist Jessica Sandy he is in status post I and D of the right total knee arthroplasty POD#4, history of right TKA two weeks ago, Weight bearing as tolerated, recommended to follow with Doctor Diggs in one to two weeks. No nausea, vomit or diarrhea. Assessment and Plan 1. History of R TKA 2 weeks ago S/p I&D R TKA by Dr Diggs 04/18/17 Large hemarthrosis with wound dehiscence and draining Deep and superficial cultures taken in OR - follow cultures Discussed with Infectious Disease specialist Doctor Jessica Sandy, recommended to discharge Home and continue with Infusion center to continue Ceftriaxone 2 grams daily until May 31 2017. as per orthopedic Surgery follow with Doctor Diggs in one to two weeks. awaiting final recommendations by Design Quality Engineer for discharge. the patient has to receive his dose of Ceftriaxone for today and Design Quality Engineer aware that everything has to be arranged for IV Infusion center for tomorrow. Hold chemical anticoagulation due to large post-op hemarthrosis and ecchymosis H/o RI with stent placed 2 years ago per patient, says he is taking only aspirin , as his BP is low and can't tolerate medications. patient refusing any other medication, says his cardiology Dr Is Dr Madrid Obesity strongly recommended diet and exercise. DVT ppx hold chemical ppx Discussed Condition With Patient, Nurse, Hospitalist FITTING ROOM INSPECTOR Miss Samayoa, assurance senior manager Miss Cueva Discharge Planning Discharge home with [facility] Pt Condition on Discharge: Good Discharge Disposition: Disch w/ Home Health Serv Discharge Time: <= 30 minutes Discharge Instructions DIET: Follow Instructions for: Heart Healthy Diet Activities you can perform: Weight Bearing as Jonathan Louie Khan MD Apr 22, 2017 15:10
[2017-04-22] MEDS: cefTRIAXone INJ 2,000 MG in SODIUM CHLORIDE 0.9% INJ 100 ML IV SCH (15:22)
[2017-04-23] MEDS ORDERED: SODIUM CHLORIDE 0.9% FLUSH 10 ML FLUSH IV FLUSH SCH (09:00)
== END 2017-04-22 17:47 | disposition home health service (06) | DRG 907 ==
LOC: N05A 11:57 → OBSVTOIN 11:57
PROVIDERS: ADMIT Internal Medicine; ATTEND Internal Medicine
PROC: 0J9N0ZZ Drainage of Right Lower Leg Subcutaneous Tissue and Fascia, Open Approach (ICD-10-PCS; 2017-04-18)
PROC: 3E1U38Z Irrigation of Joints using Irrigating Substance, Percutaneous Approach (ICD-10-PCS; 2017-04-18)
PROC: 0JQN0ZZ Repair Right Lower Leg Subcutaneous Tissue and Fascia, Open Approach (ICD-10-PCS; principal; 2017-04-18 18:38)
PROC: 02HV33Z Insertion of Infusion Device into Superior Vena Cava, Percutaneous Approach (ICD-10-PCS; 2017-04-22)
PROC: B548ZZA Ultrasonography of Superior Vena Cava, Guidance (ICD-10-PCS; 2017-04-22)
DX: T81.31XA Disruption of external operation (surgical) wound, not elsewhere classified, initial encounter (principal); A41.9 Sepsis, unspecified organism; R65.20 Severe sepsis without septic shock; T84.53XA Infection and inflammatory reaction due to internal right knee prosthesis, initial encounter; L76.32 Postprocedural hematoma of skin and subcutaneous tissue following other procedure; Z96.651 Presence of right artificial knee joint; Z95.5 Presence of coronary angioplasty implant and graft; I25.10 Atherosclerotic heart disease of native coronary artery without angina pectoris; Z79.82 Long term (current) use of aspirin; Z88.1 Allergy status to other antibiotic agents; Z85.820 Personal history of malignant melanoma of skin; Z87.891 Personal history of nicotine dependence; E66.9 Obesity, unspecified; Z68.35 Body mass index [BMI] 35.0-35.9, adult; I25.2 Old myocardial infarction
CPT/HCPCS: 71010; 73560; 80048; 80053; 81001; 82948; 83605; 85025; 85027; 86140; 87015; 87040; 87070; 87077; 87102; 87116; 87186; 87205; 87206; 93005; 94150; G8987-GP; G8988-GP; J0690; J0692; J0696; J1170; J1200; J1580; J2270; J2930; J3370; J7030

== ENCOUNTER 2017-04-25 20:52 | Emergency (ER) | payer MEDICARE, OTHER ==
[~2017-04-25 20:52] MED LIST changes: +CEFT1INJ5 IV; +CIPR-9 PO; -ENOX40P SQ; +EPIN1INJ21 IV PUSH; +EPIN1INJ21 SQ; +PERC5TAB12 PO; +SOLU250I IV PUSH
[2017-04-25 20:53] VITALS: BP 140/86; PULSE 89; RESP 18; TEMP 98.1; O2SAT 96
== END 2017-04-25 22:30 | disposition left against medical advice (07) ==
LOC: NED 20:52
DX: Z51.89 Encounter for other specified aftercare (principal); Z53.21 Procedure and treatment not carried out due to patient leaving prior to being seen by health care provider
CPT/HCPCS: 99281

== ENCOUNTER 2017-04-25 22:47 | Emergency (ER) | payer MEDICARE, OTHER ==
[~2017-04-25] VITALS: Ht 175.3 cm; Wt 109.0 kg
[2017-04-25 23:01] VITALS: BP 128/87; PULSE 80; RESP 18; TEMP 98.6; O2SAT 96
--- NOTE | 2017-04-25 23:35 | PD ---
HPI Chief Complaint: Sales Coach Problem Time Seen by Provider: 23:24 Travel History International Travel<30 days: No Contact w/Intl Traveler<30days: No Traveled to known affect area: No History of Present Illness HPI 62-year-old male presents to the emergency department for evaluation of incomplete dislodgment of a right upper extremity PICC line. Patient had PICC line placed in order to receive IV antibiotics for recent infection of the right knee post total knee replacement. Patient denies any fever or chills. Patient is not noticed any drainage or redness at the site. Patient states PICC line became dislodged as he has a tape allergy and thinks that while he was scratching he may have partially dislodged PICC line. Patient is supposed to be receiving IV antibiotics once daily at 11 AM every day until May 31 due to infection of the right knee. Patient denies other concerns or complaints. PFSH Past Medical History Narrative Medical Arthritis anxiety depression CAD myocardial infarction cardiac catheterization with stent COPD right knee replacement tonsillectomy no tobacco use Arthritis: Yes Blood Disorders: No Anxiety: Yes (PTSD) Depression: Yes Heart Rhythm Problems: No Cancer: Yes (SKIN) Cardiovascular Problems: Yes (HX [place]) High Cholesterol: No Chest Pain: No Congestive Heart Failure: No COPD: Yes Diabetes: No Diminished Hearing: No Endocrine: No Glaucoma: No Genitourinary: No Hepatitis: No Hiatal Hernia: No Hypertension: No Immune Disorder: No Medical other: Yes (COMA IN AFTER BEING TASED.) Musculoskeletal: Yes (CHRONIC RIGHT SHOULDER, HIP, KNEE, AND SCIATIC PAIN, OA) Neurologic: No Respiratory: No Immunizations Current: Yes Sleep Apnea: No Thyroid Disease: No Tetanus Vaccination: < 5 Years Influenza Vaccination: Yes Past Surgical History Abdominal Surgery: No Body Medical Devices: CARDIAC STENT Cardiac Surgery: Yes (stent) Ear Surgery: No Endocrine Surgery: No Eye Surgery: No Genitourinary Surgery: No Gynecologic Surgery: No Joint Replacement: Yes (right knee ) Neurologic Surgery: No Oral Surgery: No Pacemaker: No Thoracic Surgery: No Tonsillectomy: Yes Other Surgery: Yes Social History Alcohol Use: No Tobacco Use: No (quit 3 months ago) Substance Use: No Allergies-Medications (Allergen,Severity, Reaction): Coded Allergies: vancomycin (Verified Allergy, Severe, 04/25/17) Uncoded Allergies: VANCOMYCIN (Allergy, Severe, hives, tongue swelling, 04/18/17) Reported Meds & Prescriptions Reported Meds & Active Scripts Active Cipro (Ciprofloxacin HCl) 500 Mg Tab 500 Mg PO BID 14 Days Epinephrine Inj 1 Mg/Ml (1 Ml) Inj 0.3 Mg SQ ONCE PRN Give with any signs of respiratory distress. Epinephrine Inj 1 Mg/Ml (1 Ml) Inj 0.3 Mg IV PUSH ONCE PRN Solu-Cortef Inj (Hydrocortisone Sodium Succinate) 250 Mg/2 Ml Inj 250 Mg IV PUSH ONCE PRN Give over 30-60 seconds. Ceftriaxone Inj (Ceftriaxone Sodium) 1 Gram Inj 2 Gm IV DAILY 42 Days Commode 3-in-1 (Device) 1 Mis Mis Ea .ROUTE DIRECTED CPM-Continuous Passive Motion Machine 1 Ea Device Ea .ROUTE DIRECTED Walker with Front Wheels (Device) 1 Mis Mis Ea .ROUTE DIRECTED Aspirin Low Dose (Aspirin) 81 Mg Chew 81 Mg CHEW BID 30 Days Reported Suboxone Sublingual Film (Buprenorphine-Naloxone Sublingual Film) 8-2 Mg Film 8 Mg PO DAILY Unique ID number required: Review of Systems Except as stated in HPI: all other systems reviewed are Neg General / Constitutional: No: Fever, Chills HENT: No: Congestion Cardiovascular: No: Chest Pain or Discomfort Respiratory: No: Shortness of Breath, Pleuritic Pain Gastrointestinal: No: Vomiting Musculoskeletal: Positive: Other (IV PICC line dislodged RUE), No: Myalgias, Arthralgias, Pain Skin: No Rash Neurologic: No: Weakness Psychiatric: No: Anxiety Hematologic/Lymphatic: No: Lymph Node Enlargement Physical Exam Narrative GENERAL: Well-developed well-nourished SKIN: Warm and dry. Attention right upper extremity no induration no erythema no purulent drainage at PICC line insertion site distally extremity is neurovascular tendon intact no ascending erythema or lymphadenopathy. MUSCULOSKELETAL: No cyanosis, or edema. Data Data Last Documented VS Vital Signs Date Time Temp Pulse Resp B/P (MAP) Pulse Ox O2 Delivery O2 Flow Rate FiO2 04/25/17 23:01 98.6 80 18 128/87 (101) 96 Orders Orders Ed Discharge Order (04/25/17 23:46) MDM Medical Decision Making Medical Screen Exam Complete: Yes Emergency Medical Condition: Yes Medical Record Reviewed: Yes Differential Diagnosis PICC line dislodgment, insertion site infection, cellulitis Narrative Course Patient with accidental PICC line dislodgment with no evidence of infection no redness no induration no drainage no tenderness no ascending erythema no axillary lymphadenopathy. Patient is receiving daily Rocephin for completion of a 42 day/6 week course of IV antibiotic due to hardware infection status post right total knee replacement. Patient is aware that he will need to come to the emergency department 04/26/17 to receive his IV antibiotic if he is unable to have his PICC line placed to the venous access team or interventional radiology 04/26/17. Patient provided with prescription for placement of a PICC line via interventional radiology 04/26/17. Patient's questions have been answered to his satisfaction. Diagnosis Primary Impression: Displacement of peripherally inserted central venous catheter (PICC) Referrals: Infectious Disease Specialist call for appointment Orthopedist call for appointment Patient Instructions: General Instructions Additional Instructions: Follow-up times one day 04/26/17 at [facility] to have PICC line insertion performed Continue daily IV antibiotic as prescribed through scheduled 42 day completion Follow-up with your orthopedist and your infectious disease specialist Return to the emergency department for any concerns or change in condition Vaishali Puentes MD Apr 25, 2017 23:35
== END 2017-04-25 23:54 | disposition home or self-care (01) ==
LOC: PHED 22:47
DX: T82.524A Displacement of infusion catheter, initial encounter (principal)
CPT/HCPCS: 99281

== ENCOUNTER 2017-04-26 08:26 | Day surgery (SDC) | payer OTHER ==
[~2017-04-26 08:26] MED LIST changes: -HYDR-3366 PO; -PERC5TAB12 PO
[2017-04-26 08:49] VITALS: BP 145/87; PULSE 83; RESP 20; TEMP 98.2; O2SAT 95
[2017-04-26 10:30] VITALS: BP 134/74; PULSE 78; RESP 20; TEMP 98.2; O2SAT 94
--- NOTE | 2017-04-26 10:36 | PD.RAD ---
Post Procedure Progress Note Pre Procedure Diagnosis: (1) Hardware complicating wound infection (2) Dehiscence of closure of skin Post Procedure Diagnosis: (1) Dehiscence of closure of skin (2) Infection caused by Enterobacter cloacae Procedure Date: Apr 26, 2017 Supervising Radiologist: José Fontenot Proceduralist/Assist: Rneee Mcdonald RT(R)() Estimated blood loss: none Anesthesia: Local Plan of Activity Patient to Unit: ROPU Patient Condition: Good Additional Comments: PICC placed via the right arm. catheter tip in the SVC. Line OK for use Catheter length 40cm See PACS Report for procedural detail/treatment José Fontenot MD Apr 26, 2017 10:36
[2017-04-26] MEDS ORDERED: SODIUM CHLORIDE 0.9% FLUSH 10 ML FLUSH IVF PRN ×2 (10:45)
--- NOTE | 2017-04-26 13:26 | RADRPT ---
EXAM DATE/TIME: 04/26/2017 11:10 [facility] COMPARISON: No previous studies available for comparison. INDICATIONS : Patient with right knee hardware infection in need of PICC line placement. MEDICAL HISTORY : [place], PTSD, Osteoarthritis, CAD, COPD SURGICAL HISTORY : I&D of wound dehiscence, Cardiac stent, Right knee replacement ENCOUNTER: Initial ACUITY: 1 week PAIN SCORE: 0/10 FLUORO TIME: 0.3 minutes IMAGE SERIES: 1 ACCESS: Right basilic vein MEDICATION(S): 1.) 200 units Heparin IV DEVICE(S): 1.) 4 [place] single lumen 40 cm Xcela Power PICC PROCEDURE : 1. Ultrasound guidance for venous catheterization. 2. Fluoroscopic guidance. 3. Ultrasound & fluoroscopic guided central venous Power PICC line placement. The risks, benefits and alternatives to the procedure were explained and verbal and written consent w as obtained. The site was prepped in sterile fashion. Full sterile technique was used, including ca p, mask, sterile gloves and gown and a large sterile sheet. Hand hygiene and 2% chlorhexidine prep w as utilized per protocol for cutaneous antisepsis with appropriate dry time for site. Sterile gel a nd sterile probe cover were utilized for ultrasound guidance. The skin and subcutaneous tissues wer e infiltrated with local anesthetic solution. Under direct ultrasound guidance, a suitable vein was accessed and a measuring guidewire was introduc ed and positioned in the central venous system. The ultrasound images depicting access guidance were saved and stored to PACS for permanent record. A Power Injectable PICC line was cut to prescribed length and introduced, positioned with tip at the cavoatrial junction level. The line was flushed and secured per protocol. CONCLUSION: 1. Uncomplicated central venous Power PICC line placement. 2. The PICC line can be used immediately. José Fontenot MD on April 26, 2017 at 13:24 Board Certified Radiologist. This report was verified electronically.
[2017-04-27] MEDS ORDERED: SODIUM CHLORIDE 0.9% FLUSH 10 ML FLUSH IVF SCH (09:00)
== END 2017-04-26 10:50 | disposition home or self-care (01) ==
LOC: HROP 08:26 → HRIP 08:27 → HROP 10:50
PROVIDERS: ATTEND Emergency Medicine
DX: Z45.2 Encounter for adjustment and management of vascular access device (principal); T84.53XA Infection and inflammatory reaction due to internal right knee prosthesis, initial encounter; T81.31XA Disruption of external operation (surgical) wound, not elsewhere classified, initial encounter; B96.89 Other specified bacterial agents as the cause of diseases classified elsewhere; I25.10 Atherosclerotic heart disease of native coronary artery without angina pectoris; F43.10 Post-traumatic stress disorder, unspecified; J44.9 Chronic obstructive pulmonary disease, unspecified; M19.90 Unspecified osteoarthritis, unspecified site; Z96.651 Presence of right artificial knee joint; Z95.5 Presence of coronary angioplasty implant and graft
CPT/HCPCS: 36569; 76937; 77001; C1751; J1642

== ENCOUNTER 2017-06-09 05:37 | Emergency (ER) | payer OTHER ==
[~2017-06-09] VITALS: Ht 175.3 cm; Wt 105.1 kg
[~2017-06-09 05:37] MED LIST changes: -COMMODE 3-IN-11 MIS; -CPMMACHINE; -EPIN1INJ21 IV PUSH; -EPIN1INJ21 SQ; -SOLU250I IV PUSH
[2017-06-09 05:42] VITALS: BP 145/93; PULSE 81; RESP 24; TEMP 98.2; O2SAT 97
[2017-06-09] MEDS ORDERED: XANA1TAB2 PO (06:40)
[2017-06-09] MEDS ORDERED: CLON0.2T PO (06:40)
[2017-06-09] MEDS ORDERED: PROM25TA10 PO (06:40)
--- NOTE | 2017-06-09 06:44 | PD ---
HPI Chief Complaint: Alcohol/Drug Intoxication Time Seen by Provider: 06:33 Travel History International Travel<30 days: No Contact w/Intl Traveler<30days: No Traveled to known affect area: No History of Present Illness HPI The patient is a 62-year-old male who was on Suboxone for years. Due to insurance problems, his Suboxone was discontinued and he can no one or get it until [facility] He states that he has been off Suboxone for 4 days and he feels cold, nauseated and itching. He appears to have Suboxone withdrawal. He did smoke some crack cocaine during this 4 day period. He would like something to relax him, control the nausea until he can [facility]. Sunday is . [facility] Past Medical History Arthritis: Yes Blood Disorders: No Anxiety: Yes (PTSD) Depression: Yes Heart Rhythm Problems: No Cancer: Yes (SKIN) Cardiovascular Problems: Yes (HX [place]) High Cholesterol: No Chest Pain: No Congestive Heart Failure: No COPD: Yes Diabetes: No Diminished Hearing: No Endocrine: No Glaucoma: No Genitourinary: No Hepatitis: No Hiatal Hernia: No Hypertension: No Immune Disorder: No Medical other: Yes (COMA IN AFTER BEING TASED.) Musculoskeletal: Yes (CHRONIC RIGHT SHOULDER, HIP, KNEE, AND SCIATIC PAIN, OA) Neurologic: No Respiratory: No Immunizations Current: Yes Sleep Apnea: No Thyroid Disease: No Tetanus Vaccination: > 5 Years Past Surgical History Abdominal Surgery: No Body Medical Devices: CARDIAC STENT Cardiac Surgery: Yes (stent) Ear Surgery: No Endocrine Surgery: No Eye Surgery: No Genitourinary Surgery: No Gynecologic Surgery: No Joint Replacement: Yes (right knee ) Neurologic Surgery: No Oral Surgery: No Pacemaker: No Thoracic Surgery: No Tonsillectomy: Yes Other Surgery: Yes Social History Alcohol Use: No Tobacco Use: No (quit 3 months ago) Substance Use: Yes (cocaine ) Allergies-Medications (Allergen,Severity, Reaction): Coded Allergies: vancomycin (Verified Allergy, Severe, 04/26/17) Uncoded Allergies: VANCOMYCIN (Allergy, Severe, hives, tongue swelling, 04/18/17) Reported Meds & Prescriptions Reported Meds & Active Scripts Active Aspirin Low Dose (Aspirin) 81 Mg Chew 81 Mg CHEW BID 30 Days Review of Systems Except as stated in HPI: all other systems reviewed are Neg Physical Exam Narrative GENERAL: The patient is anxious, alert, oriented 3 in slight apparent distress with his apparent Suboxone withdrawal. His vital signs show blood pressure 145/ 93 but are otherwise unremarkable. SKIN: Focused skin assessment warm/dry. No needle tracks nor wrist slash randle are present. HEAD: Atraumatic. Normocephalic. EYES: Pupils equal and round. No scleral icterus. No injection or drainage. ENT: No nasal bleeding or discharge. Mucous membranes pink and moist. NECK: Trachea midline. No JVD. CARDIOVASCULAR: Regular rate and rhythm. No murmur appreciated. RESPIRATORY: No accessory muscle use. Clear to auscultation. Breath sounds equal bilaterally. GASTROINTESTINAL: Abdomen soft, non-tender, nondistended. Hepatic and splenic margins not palpable. No guarding or rebound is present. MUSCULOSKELETAL: No obvious deformities. No clubbing. No cyanosis. No edema. NEUROLOGICAL: Awake and alert. No obvious cranial nerve deficits. Motor grossly within normal limits. Normal speech. PSYCHIATRIC: The patient is anxious; insight and judgment normal. Data Data Last Documented VS Vital Signs Date Time Temp Pulse Resp B/P (MAP) Pulse Ox O2 Delivery O2 Flow Rate FiO2 06/09/17 05:42 98.2 81 24 145/93 (110) 97 MDM Medical Decision Making Medical Screen Exam Complete: Yes Emergency Medical Condition: Yes Medical Record Reviewed: Yes Differential Diagnosis Suboxone withdrawal, cocaine side effect, other drug side effect, anxiety reaction Narrative Course The patient likely has Suboxone withdrawal as well as anxiety. Plan: The patient will be given Phenergan, clonidine and Xanax. Diagnosis Primary Impression: Encounter for monitoring Suboxone maintenance therapy Additional Instructions: As we discussed, it appears you are symptoms are as a result of Suboxone withdrawal. [facility] to see if you can get back on [facility]one through them. Med/Other Pt SpecificInfo: Prescription(s) given Scripts Promethazine (Phenergan) 25 Mg Tablet 25 MG PO Q6H Y for NAUSEA OR VOMITING, #30 TAB 0 Refills Prov: Russell Feliciano MD 06/09/17 Alprazolam (Xanax) 1 Mg Tab 1 MG PO Q8H Y for ANXIETY, #30 TAB 0 Refills Prov: Russell Feliciano MD 06/09/17 Clonidine (Clonidine) 0.2 Mg Tab 0.2 MG PO BID for Blood Pressure Management, #60 TAB 0 Refills Prov: Russell Feliciano MD 06/09/17 Disposition: 01 DISCHARGE HOME Condition: Stable Russell Feliciano MD Jun 09, 2017 06:44
[2017-06-09 06:55] VITALS: BP 132/75; TEMP 98.3
== END 2017-06-09 06:59 | disposition home or self-care (01) ==
LOC: PHED 05:37
DX: F19.939 Other psychoactive substance use, unspecified with withdrawal, unspecified (principal); I25.2 Old myocardial infarction; J44.9 Chronic obstructive pulmonary disease, unspecified
CPT/HCPCS: 99284

== ENCOUNTER 2017-06-20 15:20 | Emergency (ER) | payer OTHER ==
[~2017-06-20] VITALS: Ht 175.3 cm; Wt 109.0 kg
[~2017-06-20 15:20] MED LIST changes: -CEFT1INJ5 IV; -CIPR-9 PO; +CLON0.2T PO; +PROM25TA10 PO; -SUBO8MIS PO; -WALKER WHEELS/F1 MIS; +XANA1TAB2 PO
[2017-06-20 15:23] VITALS: BP 135/82; PULSE 89; RESP 18; TEMP 98; O2SAT 95
--- NOTE | 2017-06-20 16:28 | PD ---
HPI Chief Complaint: Pain: Acute or Chronic Time Seen by Provider: 16:16 Travel History International Travel<30 days: No Contact w/Intl Traveler<30days: No Traveled to known affect area: No History of Present Illness HPI 62-year-old male with history of right knee replacement in March 2017 I was complicated by postoperative infection that required washout, here for evaluation of right knee pain. The patient reports having pain in the knee since his surgery. He was initially on IV antibiotics and is currently on oral antibiotics, however he does not know the name of the antibiotic. Pain is severe, constant, worse with movements. He is unsure if he has had fever. He was seen at [facility] 2 days ago for the same complaints where he reports he has had blood work as well as an ultrasound of the right lower extremity that did not reveal a DVT. PFSH Past Medical History Hx Anticoagulant Therapy: No Arthritis: Yes Blood Disorders: No Anxiety: Yes (PTSD) Depression: Yes Heart Rhythm Problems: No Cancer: Yes (SKIN) Cardiovascular Problems: Yes (AL, STENT) High Cholesterol: No Chest Pain: No Congestive Heart Failure: No COPD: Yes Diabetes: No Diminished Hearing: No Endocrine: No Glaucoma: No Genitourinary: No Hepatitis: No Hiatal Hernia: No Hypertension: No Immune Disorder: No Medical other: Yes (COMA IN AFTER BEING TASED.) Musculoskeletal: Yes (CHRONIC RIGHT SHOULDER, HIP, KNEE, AND SCIATIC PAIN, OA) Neurologic: No Respiratory: No Immunizations Current: Yes Sleep Apnea: No Thyroid Disease: No Influenza Vaccination: Yes Past Surgical History Abdominal Surgery: No Body Medical Devices: CARDIAC STENT Cardiac Surgery: Yes (stent) Ear Surgery: No Endocrine Surgery: No Eye Surgery: No Genitourinary Surgery: No Gynecologic Surgery: No Joint Replacement: Yes (right knee ) Neurologic Surgery: No Oral Surgery: No Pacemaker: No Thoracic Surgery: No Tonsillectomy: Yes Other Surgery: Yes Social History Alcohol Use: No Tobacco Use: No (quit 3 months ago) Substance Use: Yes (cocaine ) Allergies-Medications (Allergen,Severity, Reaction): Coded Allergies: meloxicam (Verified Allergy, Severe, 06/20/17) pregabalin (Verified Allergy, Severe, 06/20/17) vancomycin (Verified Allergy, Severe, 06/20/17) Uncoded Allergies: VANCOMYCIN (Allergy, Severe, hives, tongue swelling, 04/18/17) Reported Meds & Prescriptions Reported Meds & Active Scripts Active Xanax (Alprazolam) 1 Mg Tab 1 Mg PO Q8H PRN Review of Systems Except as stated in HPI: all other systems reviewed are Neg Physical Exam Narrative GENERAL: Well-developed, well-nourished, no apparent distress. SKIN: Focused skin assessment warm/dry. Right anterior knee with long/vertical/ well-healed surgical scar. There is mild warmth, no erythema, moderate anterior knee swelling. No purulence. No fluctuance or induration. HEAD: Atraumatic. Normocephalic. EYES: Pupils equal and round. No scleral icterus. No injection or drainage. ENT: Mucous membranes pink and moist. NECK: Trachea midline. No JVD. CARDIOVASCULAR: Regular rate and rhythm. Bilateral dorsalis pedis pulses are brisk and equal. RESPIRATORY: No accessory muscle use. Clear to auscultation. Breath sounds equal bilaterally. GASTROINTESTINAL: Abdomen soft, non-tender, nondistended. Hepatic and splenic margins not palpable. MUSCULOSKELETAL: Skin exam as above. Moderate right anterior knee swelling. Bilateral calves are supple, nontender without edema. Patient is able to flex and extend the right knee to about 90. NEUROLOGICAL: Awake and alert. No obvious cranial nerve deficits. Motor grossly within normal limits. Normal speech. PSYCHIATRIC: Appropriate mood and affect; insight and judgment normal. Data Data Last Documented VS Vital Signs Date Time Temp Pulse Resp B/P (MAP) Pulse Ox O2 Delivery O2 Flow Rate FiO2 06/20/17 15:23 98.0 89 18 135/82 (99) 95 Orders Orders Complete Blood Count With Diff (06/20/17 16:22) Comprehensive Metabolic Panel (06/20/17 16:22) Prothrombin Time / Inr (Pt) (06/20/17 16:22) Act Partial Throm Time (Ptt) (06/20/17 16:22) Iv Access Insert/Monitor (06/20/17 16:22) Ecg Monitoring (06/20/17 16:22) Oximetry (06/20/17 16:22) Sodium Chloride 0.9% Flush (Ns Flush) (06/20/17 16:30) Blood Culture (06/20/17 16:22) Westergren Sedimentation Rate (06/20/17 16:22) Morphine Inj (Morphine Inj) (06/20/17 16:30) Knee, Complete (4vws) (06/20/17 ) Labs Laboratory Tests Test 06/20/17 16:41 06/20/17 16:55 Erythrocyte Sedimentation Rate 2 mm/hr White Blood Count 11.2 TH/MM3 Red Blood Count 5.07 MIL/MM3 Hemoglobin 14.3 GM/DL Hematocrit 44.8 % Mean Corpuscular Volume 88.3 FL Mean Corpuscular Hemoglobin 28.1 PG Mean Corpuscular Hemoglobin Concent 31.9 % Red Cell Distribution Width 13.6 % Platelet Count 296 TH/MM3 Mean Platelet Volume 8.0 FL Neutrophils (%) (Auto) 71.4 % Lymphocytes (%) (Auto) 20.1 % Monocytes (%) (Auto) 6.7 % Eosinophils (%) (Auto) 1.2 % Basophils (%) (Auto) 0.6 % Neutrophils # (Auto) 7.9 TH/MM3 Lymphocytes # (Auto) 2.3 TH/MM3 Monocytes # (Auto) 0.8 TH/MM3 Eosinophils # (Auto) 0.1 TH/MM3 Basophils # (Auto) 0.1 TH/MM3 CBC Comment DIFF FINAL Differential Comment Prothrombin Time 10.7 SEC Prothromb Time International Ratio 1.1 RATIO Activated Partial Thromboplast Time 23.2 SEC Blood Urea Nitrogen 17 MG/DL Creatinine 1.20 MG/DL Random Glucose 123 MG/DL Total Protein 7.1 GM/DL Albumin 3.6 GM/DL Calcium Level 8.7 MG/DL Alkaline Phosphatase 104 U/L Aspartate Amino Transf (AST/SGOT) 15 U/L Alanine Aminotransferase (ALT/SGPT) 29 U/L Total Bilirubin 0.2 MG/DL Sodium Level 141 MEQ/L Potassium Level 3.6 MEQ/L Chloride Level 107 MEQ/L Carbon Dioxide Level 27.8 MEQ/L Anion Gap 6 MEQ/L Estimat Glomerular Filtration Rate 61 ML/MIN MDM Medical Decision Making Medical Screen Exam Complete: Yes Emergency Medical Condition: Yes Medical Record Reviewed: Yes Differential Diagnosis Septic arthritis, postoperative pain, hemarthrosis Narrative Course Vital signs reviewed and are within normal limits. The patient is afebrile. CBC: WBC 11.2, hemoglobin 14.3, hematocrit 44.8, platelets 296. CMP is essentially unremarkable. ESR is 2. Right knee x-ray: Total knee arthroplasty without fracture. Moderately large suprapatellar effusion. Patient signs and symptoms are not consistent with a septic arthritis or infection. He is on oral antibiotics infected joint/hardware in March. He was given 4 mg of IV morphine and on reassessment he states he is 100% improved. At this point I believe he is stable for discharge with outpatient follow-up with his orthopedist Dr. Diggs tomorrow. He was advised when to return to the emergency department. He verbalizes understanding and agreement with plan. Diagnosis Primary Impression: Knee pain, right Qualified Codes: M25.561 - Pain in right knee Additional Impression: Knee effusion, right Referrals: Perry Diggs MD 1 day Additional Instructions: Follow-up with your orthopedist Dr. Diggs tomorrow. Return to the emergency department for worsening symptoms or any other concerns. Scripts Oxycodone-Acetaminophen (Percocet) 10-325 mg Tab 1 TAB PO Q6H Y for PAIN, #10 TAB 0 Refills Prov: Raji Solorzano MD 06/20/17 Disposition: 01 DISCHARGE HOME Condition: Stable Raji Solorzano MD Jun 20, 2017 16:28
[2017-06-20] MEDS ORDERED: SODIUM CHLORIDE 0.9% FLUSH 10 ML FLUSH IV FLUSH PRN (16:30)
[2017-06-20] MEDS ORDERED: MORPHINE SULFATE 2 MG/ML INJ IV PUSH ONE (16:30)
[2017-06-20 17:14] LABS: CHLORIDE 107 MEQ/L (98-107); SODIUM (NA) 141 MEQ/L (136-145)
[2017-06-20 17:15] LABS: AUTOMATED NEUTROPHIL # 7.9 TH/MM3 (1.8-7.7); BASOPHIL # 0.1 TH/MM3 (0-0.2); BASOPHIL % 0.6 % (0.0-2.0); EOSINOPHIL # 0.1 TH/MM3 (0-0.4); EOSINOPHIL % 1.2 % (0.0-4.0); HEMATOCRIT 44.8 % (39.0-51.0); HEMOGLOBIN 14.3 GM/DL (13.0-17.0); LYMPH % 20.1 % (9.0-44.0); LYMPHOCYTE # 2.3 TH/MM3 (1.0-4.8); MEAN CELL VOLUME 88.3 FL (80.0-100.0); MEAN CORPUSCULAR HEMOGLOBIN 28.1 PG (27.0-34.0); MEAN CORPUSCULAR HGB CONC 31.9 % (32.0-36.0); MONO % 6.7 % (0.0-8.0); MONOCYTE # 0.8 TH/MM3 (0-0.9); NEUT % 71.4 % (16.0-70.0); PLATELET COUNT 296 TH/MM3 (150-450); RED BLOOD COUNT 5.07 MIL/MM3 (4.50-5.90); RED CELL DISTRIBUTION WIDTH 13.6 % (11.6-17.2); WHITE BLOOD COUNT 11.2 TH/MM3 (4.0-11.0)
[2017-06-20 17:17] LABS: CALCIUM 8.7 MG/DL (8.5-10.1)
[2017-06-20 17:18] LABS: ALBUMIN 3.6 GM/DL (3.4-5.0); BICARBONATE 27.8 MEQ/L (21.0-32.0); BLOOD UREA NITROGEN 17 MG/DL (7-18); GLUCOSE,RANDOM 123 MG/DL (74-106); INTERNATIONAL NORMALIZED RATIO 1.1 RATIO; PROTHROMBIN TIME - PATIENT 10.7 SEC (9.8-11.6)
[2017-06-20 17:21] LABS: ALT (GPT) 29 U/L (12-78); AST (GOT) 15 U/L (15-37); GLOMERULAR FILTRATION RATE 61 ML/MIN (>89)
[2017-06-20 17:22] LABS: TOTAL BILIRUBIN ADULT 0.2 MG/DL (0.2-1.0); TOTAL PROTEIN 7.1 GM/DL (6.4-8.2)
[2017-06-20 17:24] LABS: ALKALINE PHOSPHATASE 104 U/L (45-117)
--- NOTE | 2017-06-20 17:33 | RADRPT ---
EXAM DATE/TIME: 06/20/2017 17:08 [facility] COMPARISON: No previous studies available for comparison. INDICATIONS : Right knee pain after infection from knee replacement. MEDICAL HISTORY : None. SURGICAL HISTORY : Total knee replacement, right. ENCOUNTER: Initial ACUITY: 2 months PAIN SCORE: 7/10 LOCATION: Right knee. FINDINGS: Four view examination of the right knee demonstrates total knee arthroplasty. Can't totally position without fracture. There is a moderately large patellar effusion, however. CONCLUSION: 1. Total knee arthroplasty without fracture. 2. Moderately large suprapatellar effusion. Román Tran MD on June 20, 2017 at 17:29 Board Certified Radiologist. This report was verified electronically.
[2017-06-20] MEDS ORDERED: PERC10TA27 PO (17:50)
== END 2017-06-20 18:08 | disposition home or self-care (01) ==
LOC: PHEFT 15:20
DX: M25.561 Pain in right knee (principal); I25.2 Old myocardial infarction; J44.9 Chronic obstructive pulmonary disease, unspecified; Z96.651 Presence of right artificial knee joint; Z95.818 Presence of other cardiac implants and grafts; Z88.1 Allergy status to other antibiotic agents; Z88.8 Allergy status to other drugs, medicaments and biological substances; Z80.8 Family history of malignant neoplasm of other organs or systems; Z87.891 Personal history of nicotine dependence
CPT/HCPCS: 73564; 80053; 85025; 85610; 85652; 85730; 87040; 96374; 99284; J2270

== ENCOUNTER 2017-06-27 19:20 | Observation (INO) | payer OTHER ==
[~2017-06-27 19:20] MED LIST changes: -ASPI81CH6 CHEW; -CLON0.2T PO; +PERC10TA27 PO; -PROM25TA10 PO
[2017-06-27 20:01] VITALS: BP 149/81; PULSE 90; RESP 20; TEMP 99.2; O2SAT 96
[2017-06-27] MEDS ORDERED: MORPHINE SULFATE 2 MG/ML INJ IV PUSH ONE (22:00)
[2017-06-27 22:15] VITALS: BP 148/72; PULSE 89; RESP 16; O2SAT 99
[2017-06-27 22:47] LABS: CALCIUM 9.1 MG/DL (8.5-10.1)
[2017-06-27 22:48] LABS: BICARBONATE 26.2 MEQ/L (21.0-32.0)
--- NOTE | 2017-06-27 22:49 | PD ---
HPI Chief Complaint: Pain: Acute or Chronic Time Seen by Provider: 21:42 Travel History International Travel<30 days: No Contact w/Intl Traveler<30days: No Traveled to known affect area: No History of Present Illness HPI 62yo M with PMH of chronic right knee pain since his surgery in 04/04/2017. Pt was seen at multiple hospitals for this. He was seen at our hospital 06/20/17 and was referred to follow up with Dr. Diggs. Pt also went to [facility] 2 days before that and had US that showed no DVT of right leg. Pt said he went to see Dr. Diggs on 06/22/17 and had arthrocentesis. Said his swelling improved but pain did not. Said he saw infectious disease doctor Dr. De Souza last week and was place on ciprofloxacin which he has been taking. Said it was not helping. Pt does follow with pain management but said he is going to change due to insurance. Denies any fever, new trauma, focal weakness or numbness, chest pain, sob, n/v, abdominal pain. PFSH Past Medical History Hx Anticoagulant Therapy: No Arthritis: Yes Blood Disorders: No Anxiety: Yes (PTSD) Depression: Yes Heart Rhythm Problems: No Cancer: Yes (SKIN) Cardiovascular Problems: Yes ([place], STENT) High Cholesterol: No Chest Pain: No Congestive Heart Failure: No COPD: Yes Diabetes: No Diminished Hearing: No Endocrine: No Glaucoma: No Genitourinary: No Hepatitis: No Hiatal Hernia: No Hypertension: No Immune Disorder: No Medical other: Yes (COMA IN AFTER BEING TASED.) Musculoskeletal: Yes (CHRONIC RIGHT SHOULDER, HIP, KNEE, AND SCIATIC PAIN, OA) Neurologic: No Respiratory: No Immunizations Current: Yes Sleep Apnea: No Thyroid Disease: No Past Surgical History Abdominal Surgery: No Body Medical Devices: CARDIAC STENT Cardiac Surgery: Yes (stent) Ear Surgery: No Endocrine Surgery: No Eye Surgery: No Genitourinary Surgery: No Gynecologic Surgery: No Joint Replacement: Yes (right knee ) Neurologic Surgery: No Oral Surgery: No Pacemaker: No Thoracic Surgery: No Tonsillectomy: Yes Other Surgery: Yes Social History Alcohol Use: No Tobacco Use: No (quit 3 months ago) Substance Use: Yes (cocaine ) Allergies-Medications (Allergen,Severity, Reaction): Coded Allergies: meloxicam (Verified Allergy, Severe, 06/27/17) pregabalin (Verified Allergy, Severe, 06/27/17) vancomycin (Verified Allergy, Severe, 06/27/17) Uncoded Allergies: VANCOMYCIN (Allergy, Severe, hives, tongue swelling, 04/18/17) Reported Meds & Prescriptions Reported Meds & Active Scripts Active Percocet (Oxycodone-Acetaminophen) 10-325 mg Tab 1 Tab PO Q6H PRN Xanax (Alprazolam) 1 Mg Tab 1 Mg PO Q8H PRN Review of Systems Except as stated in HPI: all other systems reviewed are Neg Physical Exam Narrative GENERAL: 62yo M in mild distress. SKIN: Focused skin assessment warm/dry. HEAD: Atraumatic. Normocephalic. EYES: Pupils equal and round. No scleral icterus. No injection or drainage. ENT: No nasal bleeding or discharge. Mucous membranes pink and moist. NECK: Trachea midline. No JVD. CARDIOVASCULAR: Regular rate and rhythm. No murmur appreciated. RESPIRATORY: No accessory muscle use. Clear to auscultation. Breath sounds equal bilaterally. GASTROINTESTINAL: Abdomen soft, non-tender, nondistended. No rebound tenderness or guarding. MUSCULOSKELETAL: RLE: Right knee: +Midline scar and mild edema. No erythema. Warm to touch. Mild decreased range of motion. Sensation intact. Distal pulses intact. NEUROLOGICAL: Awake and alert. No obvious cranial nerve deficits. Motor grossly within normal limits. Normal speech. PSYCHIATRIC: Appropriate mood and affect; insight and judgment normal. Data Data Last Documented VS Vital Signs Date Time Temp Pulse Resp B/P (MAP) Pulse Ox O2 Delivery O2 Flow Rate FiO2 06/27/17 22:15 89 16 148/72 (97) 99 Room Air 06/27/17 20:01 99.2 Orders Orders Complete Blood Count With Diff (06/27/17 22:00) Basic Metabolic Panel (Bmp) (06/27/17 22:00) Morphine Inj (Morphine Inj) (06/27/17 22:00) Knee, Ltd (1 Or 2vws) (06/27/17 ) Westergren Sedimentation Rate (06/27/17 23:17) C-Reactive Protein (Crp) (06/27/17 23:17) Clindamycin 600 Mg/Ns Premix (Cleocin 60 (06/27/17 23:45) Blood Culture (06/27/17 23:37) Lactic Acid Sepsis Protocol (06/27/17 23:37) Consult Orthopedic (06/27/17 ) Admit Order (Ed Use Only) (06/27/17 23:59) Sodium Chlor 0.9% 1000 Ml Inj (Ns 1000 M (06/28/17 00:00) Labs Laboratory Tests Test 06/27/17 22:10 06/27/17 23:00 06/28/17 00:00 Blood Urea Nitrogen 16 MG/DL Creatinine 1.20 MG/DL Random Glucose 108 MG/DL Calcium Level 9.1 MG/DL Sodium Level 140 MEQ/L Potassium Level 4.1 MEQ/L Chloride Level 108 MEQ/L Carbon Dioxide Level 26.2 MEQ/L Anion Gap 6 MEQ/L Estimat Glomerular Filtration Rate 61 ML/MIN White Blood Count 15.6 TH/MM3 Red Blood Count 5.39 MIL/MM3 Hemoglobin 15.8 GM/DL Hematocrit 47.5 % Mean Corpuscular Volume 88.3 FL Mean Corpuscular Hemoglobin 29.2 PG Mean Corpuscular Hemoglobin Concent 33.1 % Red Cell Distribution Width 13.8 % Platelet Count 312 TH/MM3 Mean Platelet Volume 8.1 FL Neutrophils (%) (Auto) 72.4 % Lymphocytes (%) (Auto) 19.5 % Monocytes (%) (Auto) 5.5 % Eosinophils (%) (Auto) 1.7 % Basophils (%) (Auto) 0.9 % Neutrophils # (Auto) 11.3 TH/MM3 Lymphocytes # (Auto) 3.0 TH/MM3 Monocytes # (Auto) 0.9 TH/MM3 Eosinophils # (Auto) 0.3 TH/MM3 Basophils # (Auto) 0.1 TH/MM3 CBC Comment DIFF FINAL Differential Comment Erythrocyte Sedimentation Rate 1 mm/hr C-Reactive Protein 0.34 MG/DL Lactic Acid Level 2.0 mmol/L [facility] Medical Decision Making Medical Screen Exam Complete: Yes Emergency Medical Condition: Yes Differential Diagnosis Chronic knee pain vs. septic joint vs. cellulitis vs. osteomyelitis vs. malingering Narrative Course 62yo M with chronic right knee pain. Pt has no fever and has just follow up with Dr. Diggs and had arthrocentesis. He is nontoxic appearing. Pt said he is on antibiotics and follows with infectious disease. However, unable to verify any of this or obtain arthrocentesis results at this time of the night. Labs reviewed, leukocytosis at 15.6. BMP unremarkable. Xray right knee showed diffuse soft tissue swelling surrounding the right knee. No acute fracture or dislocation. I discussed with Dr. Gaytan who is orthopedic military source operations specialist. She agrees that since pt just had arthrocentesis, will not need another one. She said she will let Dr. Diggs know about the pt. Pt given morphine and said pain is not improved. Will do blood culture and cover him with clindamycin. Will consult Dr. Diggs. Discussed with Dr. Gamez's PA and will transfer to [facility] since orthopedic does not come to [place]. Sepsis Criteria SIRS Criteria (2 or more): Heart rate over 90, WBC > 51184, < 4000 or > 10% bands Sepsis Criteria (SIRS+source): Infect source susp/known Diagnosis Primary Impression: PAIN IN RIGHT KNEE Admitting Information Admitting Physician Requests: Observation Radha Boland DO Jun 27, 2017 22:49
[2017-06-27 22:51] LABS: CREATININE 1.2 MG/DL (0.60-1.30)
--- NOTE | 2017-06-27 22:56 | RADRPT ---
EXAM DATE/TIME: 06/27/2017 22:14 [facility] COMPARISON: KNEE RIGHT LTD (1 OR 2 VWS), April 18, 2017, 20:19. INDICATIONS : Right knee pain after infection from knee replacement. MEDICAL HISTORY : None. SURGICAL HISTORY : Total knee replacement, right. ENCOUNTER: [facility] ACUITY: 2 months PAIN SCORE: 6/10 LOCATION: Right knee. FINDINGS: Right knee replacement is noted. There is diffuse soft tissue swelling surrounding the right knee. No acute fracture or dislocation is noted. CONCLUSION: 1. Diffuse soft tissue swelling surrounding the right knee. 2. No acute fracture or dislocation. Jorge L Shelby MD on June 27, 2017 at 22:53 Board Certified Radiologist. This report was verified electronically.
[2017-06-27 23:06] LABS: AUTOMATED NEUTROPHIL # 11.3 TH/MM3 (1.8-7.7); BASOPHIL # 0.1 TH/MM3 (0-0.2); BASOPHIL % 0.9 % (0.0-2.0); EOSINOPHIL # 0.3 TH/MM3 (0-0.4); EOSINOPHIL % 1.7 % (0.0-4.0); HEMATOCRIT 47.5 % (39.0-51.0); HEMOGLOBIN 15.8 GM/DL (13.0-17.0); LYMPH % 19.5 % (9.0-44.0); MEAN CELL VOLUME 88.3 FL (80.0-100.0); MEAN CORPUSCULAR HEMOGLOBIN 29.2 PG (27.0-34.0); MEAN CORPUSCULAR HGB CONC 33.1 % (32.0-36.0); MEAN PLATELET VOLUME 8.1 FL (7.0-11.0); MONO % 5.5 % (0.0-8.0); MONOCYTE # 0.9 TH/MM3 (0-0.9); NEUT % 72.4 % (16.0-70.0); PLATELET COUNT 312 TH/MM3 (150-450); RED BLOOD COUNT 5.39 MIL/MM3 (4.50-5.90); RED CELL DISTRIBUTION WIDTH 13.8 % (11.6-17.2); WHITE BLOOD COUNT 15.6 TH/MM3 (4.0-11.0)
[2017-06-27] MEDS ORDERED: CLINDAMYCIN 600 MG/NS PREMIX 50 ML IV ONE (23:45)
[2017-06-28] MEDS ORDERED: SODIUM CHLORIDE 0.9% FLUSH 10 ML FLUSH IV FLUSH PRN
[2017-06-28] MEDS ORDERED: ACETAMINOPHEN/HYDROcodone 325 MG/10 MG TAB PO PRN
[2017-06-28] MEDS ORDERED: ONDANSETRON HCL 4 MG/2 ML VIAL IVP PRN
[2017-06-28] MEDS ORDERED: MAGNESIUM HYDROXIDE SUSP 30 ML CUP PO PRN
[2017-06-28] MEDS ORDERED: NALOXONE HCL 0.4 MG/ML AMP IV PUSH PRN
[2017-06-28] MEDS ORDERED: LACTULOSE SYRUP 20 GM/30 ML CUP PO PRN
[2017-06-28] MEDS ORDERED: MORPHINE SULFATE 2 MG/ML INJ IV PUSH PRN
[2017-06-28] MEDS ORDERED: BISACODYL 10 MG SUPP RECTAL PRN
[2017-06-28] MEDS ORDERED: ACETAMINOPHEN 325 MG TAB PO PRN
[2017-06-28] MEDS ORDERED: SENNOSIDES 8.6 MG TAB PO PRN
[2017-06-28] MEDS ORDERED: SODIUM CHLOR 0.9% 1000 ML INJ 1,000 ML IV ONE
[2017-06-28] MEDS ORDERED: ACETAMINOPHEN/HYDROcodone 325 MG/5 MG TAB PO PRN
[2017-06-28] MEDS ORDERED: ACETAMINOPHEN 325 MG TAB PO ONE (00:15)
[2017-06-28 02:16] VITALS: BP 156/82
[2017-06-28] MEDS ORDERED: SODIUM CHLORIDE 0.9% FLUSH 10 ML FLUSH IV FLUSH SCH (09:00)
== END 2017-06-28 02:10 | disposition left against medical advice (07) ==
LOC: PHED 19:20 → PHEDA 06-28 00:01
PROVIDERS: ADMIT Family Medicine; ATTEND Family Medicine
DX: M25.561 Pain in right knee (principal); G89.29 Other chronic pain; M25.461 Effusion, right knee; M19.90 Unspecified osteoarthritis, unspecified site; J44.9 Chronic obstructive pulmonary disease, unspecified; M54.30 Sciatica, unspecified side
CPT/HCPCS: 73560; 80048; 83605; 85025; 85652; 86140; 87040; 96361; 96374; 99285; G0378; J2270; J7030

== ENCOUNTER 2017-07-15 22:59 | Emergency (ER) | payer OTHER ==
[~2017-07-15] VITALS: Ht 175.3 cm; Wt 108.0 kg
[2017-07-15 23:03] VITALS: BP 170/80; PULSE 83; RESP 16; TEMP 97.7; O2SAT 98
[2017-07-15] MEDS ORDERED: HYDR-3366 PO (23:36)
--- NOTE | 2017-07-15 23:44 | PD ---
HPI Chief Complaint: Edema Time Seen by Provider: 23:25 Travel History International Travel<30 days: No Contact w/Intl Traveler<30days: No Traveled to known affect area: No History of Present Illness HPI 62-year-old white male presents emergency department with complaints of chronic right knee pain after having a knee replacement back in March. The patient states that he has had an infection in his knee which has been cared for by Dr. Diggs and infectious disease doctor out of [place]. He is currently taking cefuroxime. He states that he had just run out of his Lortab tens. He states that he is having increasing pain in his knee. He denies any fever or chills. No nausea vomiting. Pain is moderate but can be more severe with movement and walking. PFSH Past Medical History Hx Anticoagulant Therapy: No Arthritis: Yes Blood Disorders: No Anxiety: Yes (PTSD) Depression: Yes Heart Rhythm Problems: No Cancer: Yes (SKIN) Cardiovascular Problems: Yes (PA, STENT) High Cholesterol: No Chest Pain: No Congestive Heart Failure: No COPD: Yes Diabetes: No Diminished Hearing: No Endocrine: No Glaucoma: No Genitourinary: No Hepatitis: No Hiatal Hernia: No Hypertension: No Immune Disorder: No Medical other: Yes (COMA IN AFTER BEING TASED.) Musculoskeletal: Yes (CHRONIC RIGHT SHOULDER, HIP, KNEE, AND SCIATIC PAIN, OA) Neurologic: No Respiratory: No Immunizations Current: Yes Sleep Apnea: No Thyroid Disease: No Tetanus Vaccination: < 5 Years Influenza Vaccination: Yes Past Surgical History Abdominal Surgery: No Body Medical Devices: CARDIAC STENT Cardiac Surgery: Yes (stent) Ear Surgery: No Endocrine Surgery: No Eye Surgery: No Genitourinary Surgery: No Gynecologic Surgery: No Joint Replacement: Yes (right knee ) Neurologic Surgery: No Oral Surgery: No Pacemaker: No Thoracic Surgery: No Tonsillectomy: Yes Other Surgery: Yes Social History Alcohol Use: No Tobacco Use: No (quit 3 months ago) Substance Use: Yes (cocaine ) Allergies-Medications (Allergen,Severity, Reaction): Coded Allergies: meloxicam (Verified Allergy, Severe, 07/15/17) pregabalin (Verified Allergy, Severe, 07/15/17) vancomycin (Verified Allergy, Severe, 07/15/17) Uncoded Allergies: VANCOMYCIN (Allergy, Severe, hives, tongue swelling, 04/18/17) Reported Meds & Prescriptions Reported Meds & Active Scripts Active [place] (Hydrocodone-Acetaminophen) 10-325 Mg Tab 1 Tab PO Q6H PRN Percocet (Oxycodone-Acetaminophen) 10-325 mg Tab 1 Tab PO Q6H PRN Xanax (Alprazolam) 1 Mg Tab 1 Mg PO Q8H PRN Review of Systems General / Constitutional: No: Fever Eyes: No: Visual changes HENT: No: Headaches Cardiovascular: No: Chest Pain or Discomfort Respiratory: No: Shortness of Breath Gastrointestinal: No: Abdominal Pain Genitourinary: No: Dysuria Musculoskeletal: Positive: Arthralgias, Limited ROM, Edema, Pain, No: Weakness Skin: No Rash Neurologic: No: Weakness Psychiatric: No: Depression Endocrine: No: Polydipsia Hematologic/Lymphatic: No: Easy Bruising Physical Exam Narrative GENERAL: This is a well-nourished, well-developed patient, in no apparent distress. SKIN: No rashes, ecchymoses or lesions. Warm and dry. HEAD: Atraumatic. Normocephalic. EYES: PERRL, EOMI, no discharge or injection. No scleral icterus. EARS: Clear NOSE: Nasal turbinates appear normal. THROAT: Mucosa pink and moist. Airway patent. NECK: Trachea midline. supple, moves head freely. LUNGS: Clear to auscultation. CV: Regular in rhythm. ABDOMEN: Soft nontender. EXT: No clubbing cyanosis. Examination of the right lower extremity. Patient has mild swelling of the knee. He has full extension but has limited flexion to 90. There is no erythema, warmth. He has intact sensation and good distal pulses. Data Data Last Documented VS Vital Signs Date Time Temp Pulse Resp B/P (MAP) Pulse Ox O2 Delivery O2 Flow Rate FiO2 07/15/17 23:03 97.7 83 16 170/80 (110) 98 Room Air Orders Orders Acetamin-Hydrocod 325-10 Mg ([place] 10-32 (07/15/17 23:45) [facility] Medical Decision Making Medical Screen Exam Complete: Yes Emergency Medical Condition: Yes Medical Record Reviewed: Yes Differential Diagnosis Differential diagnosis: Infected prosthesis, chronic pain, arthritis Narrative Course The patient is currently taking cefuroxime. He is under the care of Dr. Diggs his orthopedist as well as his infectious disease doctor. He states that he had just run out of his hydrocodone 10 mg. Patient is having exacerbation of his pain. Patient was given 110 mg hydrocodone here in the ER and prescribed 12 additional tablets and advised to follow-up with Dr. Diggs in the next 1-2 days. Diagnosis Primary Impression: Chronic pain of right knee Patient Instructions: General Instructions Additional Instructions: Rest. Elevation. Continue antibiotics. Hydrocodone for pain. Follow-up with Dr. Diggs in the next 1-2 days. Return to the ER for emergencies. Scripts Hydrocodone-Acetaminophen ([place]) 10-325 Mg Tab 1 TAB PO Q6H Y for PAIN, #12 TAB 0 Refills Prov: Jasmeet Duncan MD 07/15/17 Disposition: 01 DISCHARGE HOME Condition: Stable Francisco Albarado Jul 15, 2017 23:44
[2017-07-15] MEDS ORDERED: ACETAMINOPHEN/HYDROcodone 325 MG/10 MG TAB PO ONE (23:45)
== END 2017-07-15 23:50 | disposition home or self-care (01) ==
LOC: NEPD 22:59
DX: G89.29 Other chronic pain (principal); M25.561 Pain in right knee
CPT/HCPCS: 99283

== ENCOUNTER 2017-10-01 12:49 | Emergency (ER) | payer OTHER | END 2017-10-01 15:36 | disposition home or self-care (01) | LOC: PHEFT 12:49 | DX: M25.511 Pain in right shoulder (principal); G89.29 Other chronic pain; F43.10 Post-traumatic stress disorder, unspecified; F32.9 Major depressive disorder, single episode, unspecified; Z85.828 Personal history of other malignant neoplasm of skin; J44.9 Chronic obstructive pulmonary disease, unspecified; I25.2 Old myocardial infarction; Z87.891 Personal history of nicotine dependence; F14.90 Cocaine use, unspecified, uncomplicated | CPT/HCPCS: 99281 ==